=== PATIENT | male | born 1985 | race Caucasian/White ===

== ENCOUNTER 2018-04-17 09:57 | Inpatient (IN) | payer OTHER ==
[2018-04-17 10:22] VITALS: BMI 21.9
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
[2018-04-17] MEDS ORDERED: MENTHOL/PHENOL 1 EACH UD MM PRN (12:38)
[2018-04-17] MEDS ORDERED: ACETAMINOPHEN 325 MG TABLET (FP) PO PRN (12:38)
[2018-04-17] MEDS ORDERED: MAGNESIUM CITRATE 300 ML BOTTLE PO PRN (12:38)
[2018-04-17] MEDS ORDERED: IBUPROFEN 400 MG TABLET (FP) PO PRN (12:38)
[2018-04-17] MEDS ORDERED: MAG HYDROX/AL HYDROX/SIMETH 30 ML UNIT-DOSE CUP PO PRN (12:38)
[2018-04-17] MEDS ORDERED: MAGNESIUM HYDROX 2400MG/30ML ORAL SUSPENSION 30 ML CUP PO PRN (12:38)
[2018-04-17] MEDS ORDERED: P-EPHED 60MG/TRIPROLIDI 2.5MG TABLET PO PRN (12:38)
--- NOTE | 2018-04-17 15:44 | EKG ---
Test Reason : Blood Pressure : / mmHG Vent. Rate : 085 BPM Atrial Rate : 085 BPM P-R Int : 134 ms QRS Dur : 086 ms QT Int : 392 ms P-R-T Axes : 072 072 062 degrees QTc Int : 466 ms NORMAL SINUS RHYTHM NORMAL ECG NO PREVIOUS ECGS AVAILABLE Confirmed by KEN COY, PHIL ([id number]) on 04/17/2018 3:44:25 PM Referred By: Confirmed By:PHIL ROGERS MD
[2018-04-17] MEDS: THIAMINE HCL 100 MG TABLET (FP) PO SCH (22:44)
[2018-04-17] MEDS: diazePAM 5 MG TABLET PO SCH (22:45)
[2018-04-17] MEDS ORDERED: METHADONE HCL 10 MG TABLET (FOR DETOX USE ONLY) PO ONE (23:00)
[2018-04-18] MEDS: diazePAM 5 MG TABLET PO SCH ×3 (05:15→22:12)
[2018-04-18] MEDS ORDERED: METHADONE HCL 10 MG TABLET (FOR DETOX USE ONLY) PO SCH (10:00)
[2018-04-18] MEDS: NICOTINE 7 MG/24 HOURS TOPICAL PATCH TD SCH (10:08)
[2018-04-18] MEDS: diazePAM 5 MG TABLET PO PRN (10:08)
[2018-04-18] MEDS: PRENATAL VITAMINS W/ FOLIC ACID TABLET (FP) PO SCH (10:08)
[2018-04-18 11:20] LABS: HEMATOCRIT 34.3 % (35.4-49); HEMOGLOBIN 11.3 GM/dL (11.7-16.9); MCH 26.8 pg (25.7-33.7); MCHC 32.9 g/dl (32.0-35.9); MEAN CELL VOLUME 81.5 fl (80-96); PLATELET COUNT 187 K/MM3 (134-434); RBC 4.21 M/mm3 (4.00-5.60); RDW 13.8 % (11.9-15.9); WHITE BLOOD COUNT 6.7 K/mm3 (4.0-10.0)
[2018-04-18 12:14] LABS: ALBUMIN 3.4 g/dl (3.4-5.0); ALK PHOS 82 U/L (45-117); ANION GAP 6 MMOL/L (8-16); BILIRUBIN,TOTAL 0.4 mg/dL (0.2-1); BLOOD UREA NITROGEN 14 mg/dL (7-18); CALCIUM 8.3 mg/dL (8.5-10.1); CHLORIDE 96 mmol/L (98-107); CO2 27 mmol/L (21-32); CREATININE 0.9 mg/dL (0.55-1.3); GLUCOSE,RANDOM 108 mg/dL (74-106); SGOT/AST 94 U/L (15-37); SGPT/ALT 102 U/L (13-61); SODIUM 129 mmol/L (136-145); TOT PROT 8.2 g/dl (6.4-8.2)
--- NOTE | 2018-04-18 12:31 | PN ---
[facility] CIWA - CIWA Score Nausea/Vomitin-No Nausea/No Vomiting Muscle Tremors: 2 Anxiety: 3 Agitation: 3 Paroxysmal Sweats: 2 Orientation: 0-Oriented Tacttile Disturbances: 0-None Auditory Disturbances: 0-None Visual Disturbances: 1-Very Mild Sensitivity Headache: 0-None Present CIWA-Ar Total Score: 11 S COWS - Scale Resting Pulse: 1= [place] 81-100 Sweatin= Chills/Flushing Restless Observation: 1= Difficult to Sit Still Pupil Size: 0= Normal to Room Light Bone or Joint Aches: 1= Mild Discomfort Runny Nose/ Eye Tearin= Runny Nose/Eyes GI Upset > 30mins: 0= None Tremor Observation of Outstretched Hands: 1= Tremor [place], Not Seen Yawning Observation: 2= >3x During Session Anxiety or Irritability: 2=Irritable/Anxious Goose Flesh Skin: 0=Smooth Skin COWS Score: 11 [facility] Progress Note (SOAP) Subjective: fatigue, irritable, interrupted sleep Objective: 04/18/18 12:28 Vital Signs Temperature 98.4 F 04/18/18 08:58 Pulse Rate 90 04/18/18 08:58 Respiratory Rate 18 04/18/18 08:58 Blood Pressure 120/70 04/18/18 08:58 O2 Sat by Pulse Oximetry (%) Laboratory Last Values WBC 6.7 K/mm3 (4.0-10.0) 04/18/18 06:00 RBC 4.21 M/mm3 (4.00-5.60) 04/18/18 06:00 Hgb 11.3 GM/dL (11.7-16.9) L 04/18/18 06:00 Hct 34.3 % (35.4-49) L 04/18/18 06:00 MCV 81.5 fl (80-96) 04/18/18 06:00 MCH 26.8 pg (25.7-33.7) 04/18/18 06:00 MCHC 32.9 g/dl (32.0-35.9) 04/18/18 06:00 RDW 13.8 % (11.9-15.9) 04/18/18 06:00 Plt Count 187 K/MM3 (134-434) 04/18/18 06:00 MPV 9.0 fl (7.5-11.1) 04/18/18 06:00 Sodium 129 mmol/L (136-145) L 04/18/18 06:00 Potassium 4.0 mmol/L (3.5-5.1) 04/18/18 06:00 Chloride 96 mmol/L (98-107) L 04/18/18 06:00 Carbon Dioxide 27 mmol/L (21-32) 04/18/18 06:00 Anion Gap 6 MMOL/L (8-16) L 04/18/18 06:00 BUN 14 mg/dL (7-18) 04/18/18 06:00 Creatinine 0.9 mg/dL (0.55-1.3) 04/18/18 06:00 Creat Clearance w eGFR > 60 (>60) 04/18/18 06:00 Random Glucose 108 mg/dL (74-106) H 04/18/18 06:00 Calcium 8.3 mg/dL (8.5-10.1) L 04/18/18 06:00 Total Bilirubin 0.4 mg/dL (0.2-1) 04/18/18 06:00 AST 94 U/L (15-37) H 04/18/18 06:00 ALT 102 U/L (13-61) H 04/18/18 06:00 Alkaline Phosphatase 82 U/L (45-117) 04/18/18 06:00 Total Protein 8.2 g/dl (6.4-8.2) 04/18/18 06:00 Albumin 3.4 g/dl (3.4-5.0) 04/18/18 06:00 RPR Titer Nonreactive (NONREACTIVE) 04/18/18 06:00 labs reviewed repeat CMP, d/c acetaminophen Aox3, no distress, irrigable no adventitious breath sounds full ROM ambulating in the unit independently Assessment: 04/18/18 12:29 withdrawal sx elevated liver enzymes 04/18/18 12:30 Plan: increase PO fluids repeat CMP in AM continue detox continue to monitor
[2018-04-18] MEDS: THIAMINE HCL 100 MG TABLET (FP) PO SCH (22:12)
[2018-04-18] MEDS: MELATONIN 5 MG TABLETS PO PRN (22:13)
[2018-04-19] MEDS: diazePAM 5 MG TABLET PO PRN ×2 (04:02→17:51)
[2018-04-19] MEDS ORDERED: METHADONE HCL 5 MG TABLET (FOR DETOX USE ONLY) PO SCH (10:00)
[2018-04-19] MEDS: PRENATAL VITAMINS W/ FOLIC ACID TABLET (FP) PO SCH (10:06)
[2018-04-19] MEDS: diazePAM 5 MG TABLET PO SCH ×2 (10:06→22:25)
[2018-04-19] MEDS: NICOTINE 7 MG/24 HOURS TOPICAL PATCH TD SCH (10:06)
[2018-04-19 12:18] LABS: ALBUMIN 3.2 g/dl (3.4-5.0); ALK PHOS 86 U/L (45-117); ANION GAP 11 MMOL/L (8-16); BILIRUBIN,TOTAL 0.3 mg/dL (0.2-1); BLOOD UREA NITROGEN 6 mg/dL (7-18); CALCIUM 9.1 mg/dL (8.5-10.1); CHLORIDE 100 mmol/L (98-107); CO2 24 mmol/L (21-32); CREATININE 0.7 mg/dL (0.55-1.3); GLUCOSE,RANDOM 111 mg/dL (74-106); POTASSIUM 4.1 mmol/L (3.5-5.1); SGOT/AST 53 U/L (15-37); SGPT/ALT 84 U/L (13-61); SODIUM 134 mmol/L (136-145); TOT PROT 8.5 g/dl (6.4-8.2)
--- NOTE | 2018-04-19 14:38 | PN ---
[facility] CIWA - CIWA Score Nausea/Vomitin-No Nausea/No Vomiting Muscle Tremors: 2 Anxiety: 3 Agitation: 3 Paroxysmal Sweats: 1-Minimal Palms Moist Orientation: 0-Oriented Tacttile Disturbances: 0-None Auditory Disturbances: 0-None Visual Disturbances: 0-None Headache: 1-Very Mild CIWA-Ar Total Score: 10 [facility] COWS - Scale Resting Pulse: 0= [place] 80 or Below Sweatin= Chills/Flushing Restless Observation: 1= Difficult to Sit Still Pupil Size: 0= Normal to Room Light Bone or Joint Aches: 1= Mild Discomfort Runny Nose/ Eye Tearin= Nasal Congestion GI Upset > 30mins: 1= Stomach Cramp Tremor Observation of Outstretched Hands: 2= Slight Tremor Visible Yawning Observation: 1= 1-2x During Session Anxiety or Irritability: 2=Irritable/Anxious Goose Flesh Skin: 0=Smooth Skin COWS Score: 10 S Progress Note (SOAP) Subjective: tremor sweat restlessness body ache joints pain Objective: 04/19/18 14:38 Vital Signs Temperature 98.2 F 04/19/18 13:58 Pulse Rate 106 H 04/19/18 13:58 Respiratory Rate 16 04/19/18 13:58 Blood Pressure 135/79 04/19/18 13:58 O2 Sat by Pulse Oximetry (%) Laboratory Last Values WBC 6.7 K/mm3 (4.0-10.0) 04/18/18 06:00 RBC 4.21 M/mm3 (4.00-5.60) 04/18/18 06:00 Hgb 11.3 GM/dL (11.7-16.9) L 04/18/18 06:00 Hct 34.3 % (35.4-49) L 04/18/18 06:00 MCV 81.5 fl (80-96) 04/18/18 06:00 MCH 26.8 pg (25.7-33.7) 04/18/18 06:00 MCHC 32.9 g/dl (32.0-35.9) 04/18/18 06:00 RDW 13.8 % (11.9-15.9) 04/18/18 06:00 Plt Count 187 K/MM3 (134-434) 04/18/18 06:00 MPV 9.0 fl (7.5-11.1) 04/18/18 06:00 Sodium 134 mmol/L (136-145) L 04/19/18 07:49 Potassium 4.1 mmol/L (3.5-5.1) 04/19/18 07:49 Chloride 100 mmol/L (98-107) 04/19/18 07:49 Carbon Dioxide 24 mmol/L (21-32) 04/19/18 07:49 Anion Gap 11 MMOL/L (8-16) 04/19/18 07:49 BUN 6 mg/dL (7-18) L 04/19/18 07:49 Creatinine 0.7 mg/dL (0.55-1.3) 04/19/18 07:49 Creat Clearance w eGFR > 60 (>60) 04/19/18 07:49 Random Glucose 111 mg/dL (74-106) H 04/19/18 07:49 Calcium 9.1 mg/dL (8.5-10.1) 04/19/18 07:49 Total Bilirubin 0.3 mg/dL (0.2-1) 04/19/18 07:49 AST 53 U/L (15-37) H 04/19/18 07:49 ALT 84 U/L (13-61) H 04/19/18 07:49 Alkaline Phosphatase 86 U/L (45-117) 04/19/18 07:49 Total Protein 8.5 g/dl (6.4-8.2) H 04/19/18 07:49 Albumin 3.2 g/dl (3.4-5.0) L 04/19/18 07:49 RPR Titer Nonreactive (NONREACTIVE) 04/18/18 06:00 lab noted Assessment: 04/19/18 14:38 withdrawal sx Plan: continue detox
[2018-04-19] MEDS: THIAMINE HCL 100 MG TABLET (FP) PO SCH (22:25)
[2018-04-19] MEDS: MELATONIN 5 MG TABLETS PO PRN (22:25)
[2018-04-20] MEDS: diazePAM 5 MG TABLET PO PRN (04:52)
[2018-04-20 09:15] VITALS: BP 106/64; PULSE 95; TEMP 98.1
[2018-04-20] MEDS ORDERED: METHADONE HCL 10 MG TABLET (FOR DETOX USE ONLY) PO SCH (10:00)
[2018-04-20] MEDS: diazePAM 5 MG TABLET PO SCH (10:09)
[2018-04-20] MEDS: NICOTINE 7 MG/24 HOURS TOPICAL PATCH TD SCH (10:10)
[2018-04-20] MEDS: PRENATAL VITAMINS W/ FOLIC ACID TABLET (FP) PO SCH (10:10)
--- NOTE | 2018-04-20 13:16 | DS ---
[facility] Detox Discharge Summary Admission Date: 04/17/18 Discharge Date: 04/20/18 - History Present History: Alcohol Dependence, Opioid Dependence Additional Comments: 32 years old male admitted on 04/17/18 for alcohol and opiate withdrawal sx patient wants to leave the detox today that he does not want to go to rehab after the detox patient said he wants to be at home - Physical Exam Results Vital Signs: Vital Signs Temperature 98.1 F 04/20/18 09:14 Pulse Rate 95 H 04/20/18 09:14 Respiratory Rate 18 04/20/18 09:14 Blood Pressure 106/64 04/20/18 09:14 O2 Sat by Pulse Oximetry (%) Pertinent Admission Physical Exam Findings: alcohol and opiate withdrawal sx Vital Signs Temperature 98.1 F 04/20/18 09:14 Pulse Rate 95 H 04/20/18 09:14 Respiratory Rate 18 04/20/18 09:14 Blood Pressure 106/64 04/20/18 09:14 O2 Sat by Pulse Oximetry (%) Laboratory Last Values WBC 6.7 K/mm3 (4.0-10.0) 04/18/18 06:00 RBC 4.21 M/mm3 (4.00-5.60) 04/18/18 06:00 Hgb 11.3 GM/dL (11.7-16.9) L 04/18/18 06:00 Hct 34.3 % (35.4-49) L 04/18/18 06:00 MCV 81.5 fl (80-96) 04/18/18 06:00 MCH 26.8 pg (25.7-33.7) 04/18/18 06:00 MCHC 32.9 g/dl (32.0-35.9) 04/18/18 06:00 RDW 13.8 % (11.9-15.9) 04/18/18 06:00 Plt Count 187 K/MM3 (134-434) 04/18/18 06:00 MPV 9.0 fl (7.5-11.1) 04/18/18 06:00 Sodium 134 mmol/L (136-145) L 04/19/18 07:49 Potassium 4.1 mmol/L (3.5-5.1) 04/19/18 07:49 Chloride 100 mmol/L (98-107) 04/19/18 07:49 Carbon Dioxide 24 mmol/L (21-32) 04/19/18 07:49 Anion Gap 11 MMOL/L (8-16) 04/19/18 07:49 BUN 6 mg/dL (7-18) L 04/19/18 07:49 Creatinine 0.7 mg/dL (0.55-1.3) 04/19/18 07:49 Creat Clearance w eGFR > 60 (>60) 04/19/18 07:49 Random Glucose 111 mg/dL (74-106) H 04/19/18 07:49 Calcium 9.1 mg/dL (8.5-10.1) 04/19/18 07:49 Total Bilirubin 0.3 mg/dL (0.2-1) 04/19/18 07:49 AST 53 U/L (15-37) H 04/19/18 07:49 ALT 84 U/L (13-61) H 04/19/18 07:49 Alkaline Phosphatase 86 U/L (45-117) 04/19/18 07:49 Total Protein 8.5 g/dl (6.4-8.2) H 04/19/18 07:49 Albumin 3.2 g/dl (3.4-5.0) L 04/19/18 07:49 RPR Titer Nonreactive (NONREACTIVE) 04/18/18 06:00 lab noted - Treatment Hospital Course: Detox Protocol Followed, Responded well Patient has Accepted a Rehab Referral to: [facility] - Medication Discharge Medications: Ambulatory Orders NK [No Known Home Medication] 04/17/18 - Diagnosis (1) Alcohol withdrawal Status: Acute Qualifiers: Complication of substance-induced condition: uncomplicated Qualified Code(s ): F10.230 - Alcohol dependence with withdrawal, uncomplicated (2) Opioid dependence with withdrawal Status: Acute - AMA Did Patient Leave Against Medical Advice: Yes
[2018-04-21] MEDS ORDERED: METHADONE HCL 5 MG TABLET (FOR DETOX USE ONLY) PO SCH (06:00)
[2018-04-21] MEDS ORDERED: diazePAM 5 MG TABLET PO SCH (10:00)
== END 2018-04-20 11:14 | disposition home or self-care (01) | DRG 773 ==
LOC: YASAS 09:57 → Y6N 12:04
PROC: HZ2ZZZZ Detoxification Services for Substance Abuse Treatment (ICD-10-PCS; principal; 2018-04-17)
DX: F11.23 Opioid dependence with withdrawal (principal); F10.230 Alcohol dependence with withdrawal, uncomplicated; F14.20 Cocaine dependence, uncomplicated; F12.20 Cannabis dependence, uncomplicated; R94.5 Abnormal results of liver function studies
CPT/HCPCS: 36415; 80053; 85027; 86593; 93005; 93010

== ENCOUNTER 2018-07-23 17:55 | Inpatient (IN) | payer OTHER ==
[2018-07-23 18:49] VITALS: BMI 27.4
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
[2018-07-23] MEDS ORDERED: MENTHOL/PHENOL 1 EACH UD MM PRN (19:29)
[2018-07-23] MEDS ORDERED: ACETAMINOPHEN 325 MG TABLET (FP) PO PRN (19:29)
[2018-07-23] MEDS ORDERED: guaiFENesin/D-METHORPHAN HB 10 ML UNIT-DOSE CUPS PO PRN (19:29)
[2018-07-23] MEDS ORDERED: NICOTINE POLACRILEX 2 MG GUM BUC PRN (19:29)
[2018-07-23] MEDS ORDERED: LOPERAMIDE HCL 2 MG CAPSULE PO PRN (19:29)
[2018-07-23] MEDS ORDERED: IBUPROFEN 400 MG TABLET (FP) PO PRN (19:29)
[2018-07-23] MEDS ORDERED: MAGNESIUM CITRATE 300 ML BOTTLE PO PRN (19:29)
[2018-07-23] MEDS ORDERED: MAGNESIUM HYDROX 2400MG/30ML ORAL SUSPENSION 30 ML CUP PO PRN (19:29)
[2018-07-23] MEDS ORDERED: MAG HYDROX/AL HYDROX/SIMETH 30 ML UNIT-DOSE CUP PO PRN (19:29)
[2018-07-23] MEDS ORDERED: P-EPHED 60MG/TRIPROLIDI 2.5MG TABLET PO PRN (19:29)
[2018-07-23] MEDS: THIAMINE HCL 100 MG TABLET (FP) PO SCH (22:28)
[2018-07-23] MEDS: hydrOXYzine PAMOATE 50 MG CAPSULE (FP) PO PRN (22:29)
[2018-07-23] MEDS: MELATONIN 5 MG TABLETS PO PRN (22:29)
[2018-07-24] MEDS: NICOTINE 14 MG/24 HOURS TOPICAL PATCH TD SCH (10:03)
[2018-07-24] MEDS: PRENATAL VITAMINS W/ FOLIC ACID TABLET (FP) PO SCH (10:03)
[2018-07-24 10:20] LABS: URINE APPEARANCE TURBID; URINE BILIRUBIN NEGATIVE (<2.0 mg/dL); URINE GLUCOSE (UA) NEGATIVE (NEGATIVE); URINE KETONE NEGATIVE (NEGATIVE); URINE LEUK ESTERASE NEGATIVE (NEGATIVE); URINE NITRITE NEGATIVE (NEGATIVE); URINE PROTEIN 1+ (NEGATIVE); URINE UROBILINOGEN 4.0 E.U/dl mg/dL (0.2-1.0)
[2018-07-24 10:32] LABS: URINE COLOR DK YELLOW
[2018-07-24 10:41] LABS: URINE BACTERIA MODERATE /hpf (NONE SEEN); URINE MUCUS MANY
[2018-07-24 11:00] LABS: HEMATOCRIT 35.2 % (35.4-49); HEMOGLOBIN 12.1 GM/dL (11.7-16.9); MCH 28.7 pg (25.7-33.7); MCHC 34.4 g/dl (32.0-35.9); MEAN CELL VOLUME 83.4 fl (80-96); PLATELET COUNT 246 K/MM3 (134-434); RBC 4.22 M/mm3 (4.00-5.60); RDW 16.2 % (11.9-15.9); WHITE BLOOD COUNT 4.3 K/mm3 (4.0-10.0)
[2018-07-24 11:04] LABS: ALBUMIN 2.8 g/dl (3.4-5.0); ALK PHOS 64 U/L (45-117); ANION GAP 6 MMOL/L (8-16); BILIRUBIN,TOTAL 0.3 mg/dL (0.2-1); BLOOD UREA NITROGEN 12 mg/dL (7-18); CALCIUM 8.2 mg/dL (8.5-10.1); CHLORIDE 108 mmol/L (98-107); CO2 27 mmol/L (21-32); CREATININE 0.9 mg/dL (0.55-1.3); GLUCOSE,RANDOM 99 mg/dL (74-106); POTASSIUM 3.9 mmol/L (3.5-5.1); SGOT/AST 60 U/L (15-37); SGPT/ALT 124 U/L (13-61); SODIUM 141 mmol/L (136-145); TOT PROT 6.9 g/dl (6.4-8.2)
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
--- NOTE | 2018-07-24 14:12 | PN ---
S Progress Note Note: Pt would like to start on Suboxone. d/w counselor pt will be going to [facility]. Pt states has been on Suboxone in the past- last time from [facility] on 09/2017. No recent controlled substances in [facility]. long h/o opioid use. Last use: 2 days ago oxycodone bought in streets- Urine tox at admission neg
[2018-07-24] MEDS: BUPRENORPHINE/NALOXONE 8 MG/2 MG FILM PACKET SL SCH (15:31)
[2018-07-24] MEDS: THIAMINE HCL 100 MG TABLET (FP) PO SCH (21:16)
[2018-07-24] MEDS: MELATONIN 5 MG TABLETS PO PRN (21:16)
[2018-07-24] MEDS: hydrOXYzine PAMOATE 50 MG CAPSULE (FP) PO PRN (21:16)
[2018-07-24] MEDS: SUVOREXANT 10 MG TABLET PO PRN (21:16)
[2018-07-25] MEDS: PRENATAL VITAMINS W/ FOLIC ACID TABLET (FP) PO SCH (10:10)
[2018-07-25] MEDS: BUPRENORPHINE/NALOXONE 8 MG/2 MG FILM PACKET SL SCH (10:10)
[2018-07-25] MEDS: NICOTINE 14 MG/24 HOURS TOPICAL PATCH TD SCH (10:12)
[2018-07-25] MEDS: MELATONIN 5 MG TABLETS PO PRN (21:44)
[2018-07-25] MEDS: THIAMINE HCL 100 MG TABLET (FP) PO SCH (21:44)
[2018-07-25] MEDS: SUVOREXANT 10 MG TABLET PO PRN (21:44)
[2018-07-25] MEDS: hydrOXYzine PAMOATE 50 MG CAPSULE (FP) PO PRN (21:44)
[2018-07-26] MEDS: BUPRENORPHINE/NALOXONE 8 MG/2 MG FILM PACKET SL SCH (09:48)
[2018-07-26] MEDS: PRENATAL VITAMINS W/ FOLIC ACID TABLET (FP) PO SCH (09:48)
[2018-07-26] MEDS: NICOTINE 14 MG/24 HOURS TOPICAL PATCH TD SCH (09:49)
[2018-07-26] MEDS: hydrOXYzine PAMOATE 50 MG CAPSULE (FP) PO PRN (21:08)
[2018-07-26] MEDS: SUVOREXANT 10 MG TABLET PO PRN (21:08)
[2018-07-26] MEDS: THIAMINE HCL 100 MG TABLET (FP) PO SCH (21:08)
[2018-07-26] MEDS: MELATONIN 5 MG TABLETS PO PRN (21:08)
[2018-07-27] MEDS: NICOTINE 14 MG/24 HOURS TOPICAL PATCH TD SCH (10:02)
[2018-07-27] MEDS: PRENATAL VITAMINS W/ FOLIC ACID TABLET (FP) PO SCH (10:02)
[2018-07-27] MEDS: BUPRENORPHINE/NALOXONE 8 MG/2 MG FILM PACKET SL SCH (10:02)
[2018-07-27] MEDS: THIAMINE HCL 100 MG TABLET (FP) PO SCH (21:45)
[2018-07-27] MEDS: hydrOXYzine PAMOATE 50 MG CAPSULE (FP) PO PRN (21:45)
[2018-07-27] MEDS: MELATONIN 5 MG TABLETS PO PRN (21:46)
[2018-07-27] MEDS: SUVOREXANT 10 MG TABLET PO PRN (21:46)
[2018-07-28] MEDS: PRENATAL VITAMINS W/ FOLIC ACID TABLET (FP) PO SCH (10:16)
[2018-07-28] MEDS: NICOTINE 14 MG/24 HOURS TOPICAL PATCH TD SCH (10:16)
[2018-07-28] MEDS: BUPRENORPHINE/NALOXONE 8 MG/2 MG FILM PACKET SL SCH (10:16)
[2018-07-28] MEDS: hydrOXYzine PAMOATE 50 MG CAPSULE (FP) PO PRN (21:57)
[2018-07-28] MEDS: THIAMINE HCL 100 MG TABLET (FP) PO SCH (21:57)
[2018-07-28] MEDS: SUVOREXANT 10 MG TABLET PO PRN (21:57)
[2018-07-28] MEDS: MELATONIN 5 MG TABLETS PO PRN (21:57)
[2018-07-29] MEDS: NICOTINE 14 MG/24 HOURS TOPICAL PATCH TD SCH (10:36)
[2018-07-29] MEDS: BUPRENORPHINE/NALOXONE 8 MG/2 MG FILM PACKET SL SCH (10:36)
[2018-07-29] MEDS: PRENATAL VITAMINS W/ FOLIC ACID TABLET (FP) PO SCH (10:36)
[2018-07-29] MEDS: THIAMINE HCL 100 MG TABLET (FP) PO SCH (21:25)
[2018-07-29] MEDS: SUVOREXANT 10 MG TABLET PO PRN (21:25)
[2018-07-29] MEDS: hydrOXYzine PAMOATE 50 MG CAPSULE (FP) PO PRN (21:25)
[2018-07-29] MEDS: MELATONIN 5 MG TABLETS PO PRN (21:25)
[2018-07-30] MEDS: PRENATAL VITAMINS W/ FOLIC ACID TABLET (FP) PO SCH (10:16)
[2018-07-30] MEDS: BUPRENORPHINE/NALOXONE 8 MG/2 MG FILM PACKET SL SCH (10:16)
[2018-07-30] MEDS: NICOTINE 14 MG/24 HOURS TOPICAL PATCH TD SCH (10:17)
[2018-07-30] MEDS: MELATONIN 5 MG TABLETS PO PRN (21:54)
[2018-07-30] MEDS: THIAMINE HCL 100 MG TABLET (FP) PO SCH (21:54)
[2018-07-30] MEDS: SUVOREXANT 10 MG TABLET PO PRN (21:54)
[2018-07-30] MEDS: hydrOXYzine PAMOATE 50 MG CAPSULE (FP) PO PRN (21:54)
[2018-07-31] MEDS: NICOTINE 14 MG/24 HOURS TOPICAL PATCH TD SCH (09:55)
[2018-07-31] MEDS: PRENATAL VITAMINS W/ FOLIC ACID TABLET (FP) PO SCH (09:56)
[2018-07-31] MEDS: BUPRENORPHINE/NALOXONE 8 MG/2 MG FILM PACKET SL SCH (09:58)
[2018-07-31] MEDS: SUVOREXANT 10 MG TABLET PO PRN (21:56)
[2018-07-31] MEDS: THIAMINE HCL 100 MG TABLET (FP) PO SCH (21:56)
[2018-07-31] MEDS: hydrOXYzine PAMOATE 50 MG CAPSULE (FP) PO PRN (21:57)
[2018-07-31] MEDS: MELATONIN 5 MG TABLETS PO PRN (21:57)
[2018-08-01] MEDS: PRENATAL VITAMINS W/ FOLIC ACID TABLET (FP) PO SCH (09:25)
[2018-08-01] MEDS: BUPRENORPHINE/NALOXONE 8 MG/2 MG FILM PACKET SL SCH (09:25)
[2018-08-01] MEDS: NICOTINE 14 MG/24 HOURS TOPICAL PATCH TD SCH (09:25)
[2018-08-01] MEDS: MELATONIN 5 MG TABLETS PO PRN (21:47)
[2018-08-01] MEDS: SUVOREXANT 10 MG TABLET PO PRN (21:47)
[2018-08-01] MEDS: THIAMINE HCL 100 MG TABLET (FP) PO SCH (21:47)
[2018-08-01] MEDS: hydrOXYzine PAMOATE 50 MG CAPSULE (FP) PO PRN (21:47)
[2018-08-02] MEDS: BUPRENORPHINE/NALOXONE 8 MG/2 MG FILM PACKET SL SCH (09:51)
[2018-08-02] MEDS: NICOTINE 14 MG/24 HOURS TOPICAL PATCH TD SCH (09:51)
[2018-08-02] MEDS: PRENATAL VITAMINS W/ FOLIC ACID TABLET (FP) PO SCH (09:51)
[2018-08-02] MEDS ORDERED: SUVOREXANT 10 MG TABLET PO PRN (22:00)
[2018-08-02] MEDS: THIAMINE HCL 100 MG TABLET (FP) PO SCH (22:04)
[2018-08-03] MEDS: NICOTINE 14 MG/24 HOURS TOPICAL PATCH TD SCH (10:48)
[2018-08-03] MEDS: BUPRENORPHINE/NALOXONE 8 MG/2 MG FILM PACKET SL SCH (10:48)
[2018-08-03] MEDS: PRENATAL VITAMINS W/ FOLIC ACID TABLET (FP) PO SCH (10:48)
--- NOTE | 2018-08-03 10:54 | PN ---
S Progress Note Note: PATIENT C/O FUNGAL RASH TO FEET. DENIES PAIN, SORES AND SWELLING TO FEET. PATIENT AMB AD AJAY, EXT FULL ROM. WILL ORDER TOLFINATE CREAM TO FEET BID AND MONITOR CLINICALLY.
[2018-08-03] MEDS: TOLNAFTATE 1% CREAM 15 GM TUBE TP SCH ×2 (17:07→21:52)
[2018-08-03] MEDS: MELATONIN 5 MG TABLETS PO PRN (21:52)
[2018-08-03] MEDS: hydrOXYzine PAMOATE 50 MG CAPSULE (FP) PO PRN (21:52)
[2018-08-03] MEDS: THIAMINE HCL 100 MG TABLET (FP) PO SCH (21:53)
[2018-08-04] MEDS: PRENATAL VITAMINS W/ FOLIC ACID TABLET (FP) PO SCH (10:11)
[2018-08-04] MEDS: BUPRENORPHINE/NALOXONE 8 MG/2 MG FILM PACKET SL SCH (10:11)
[2018-08-04] MEDS: TOLNAFTATE 1% CREAM 15 GM TUBE TP SCH ×2 (10:12→21:38)
[2018-08-04] MEDS: NICOTINE 14 MG/24 HOURS TOPICAL PATCH TD SCH (10:13)
[2018-08-04] MEDS ORDERED: IBUPROFEN 400 MG TABLET (FP) PO PRN (11:38)
--- NOTE | 2018-08-04 11:44 | PN ---
[facility] Progress Note Note: PATIENT SEEN FOR C/O LEFT EARACHE AND TOOTHACHE. . PATIENT DENIES FEVER, HEADACHE AND DIZZINESS. Vital Signs Temperature 97.6 F 08/04/18 07:05 Pulse Rate 70 08/04/18 07:05 Respiratory Rate 18 08/04/18 07:05 Blood Pressure 118/74 08/04/18 07:05 O2 Sat by Pulse Oximetry (%) PE: ALERT AND ORIENTED X 3 SKIN WARM AND DRY EARS: RIGHT TM INTACT, NEG FOR CERUMEN, DISCHARGE AND REDNESS. LEFT EAR WITH MILD CERUMEN IN EAR CANAL, NEG FOR IMPACTION, REDNESS, D/C AND SWELLING. MOUTH: + TOOTH DECAY. LEFT UPPER MOLAR WITH CRACK TOOTH AND EXPOSED GUMS/ ? NERVE A/P: TOOTHACHE TOOTH DECAY PATIENT ENCOURAGED TO FOLLOW UP WITH DENTIST WITHIN ONE WEEK OF DISCHARGE FOR TREATMENT WILL START ORAGEL IBU INCREASED TO 800MG EVERY 8 HRS PRN FOR PAIN CONTINUE TO MONITOR
[2018-08-04] MEDS: BENZOCAINE 20 % GEL TUBE MM PRN (14:04)
[2018-08-04] MEDS: THIAMINE HCL 100 MG TABLET (FP) PO SCH (21:37)
[2018-08-04] MEDS: MELATONIN 5 MG TABLETS PO PRN (21:38)
[2018-08-04] MEDS: hydrOXYzine PAMOATE 50 MG CAPSULE (FP) PO PRN (21:38)
[2018-08-05] MEDS: BENZOCAINE 20 % GEL TUBE MM PRN (10:19)
[2018-08-05] MEDS: PRENATAL VITAMINS W/ FOLIC ACID TABLET (FP) PO SCH (10:19)
[2018-08-05] MEDS: BUPRENORPHINE/NALOXONE 8 MG/2 MG FILM PACKET SL SCH (10:21)
[2018-08-05] MEDS: NICOTINE 14 MG/24 HOURS TOPICAL PATCH TD SCH (10:21)
[2018-08-05] MEDS: TOLNAFTATE 1% CREAM 15 GM TUBE TP SCH (10:21)
[2018-08-05] MEDS: hydrOXYzine PAMOATE 50 MG CAPSULE (FP) PO PRN (21:45)
[2018-08-05] MEDS: MELATONIN 5 MG TABLETS PO PRN (21:45)
[2018-08-05] MEDS: THIAMINE HCL 100 MG TABLET (FP) PO SCH (21:46)
[2018-08-05] MEDS ORDERED: SUVOREXANT 10 MG TABLET PO PRN (22:00)
[2018-08-06] MEDS: TOLNAFTATE 1% CREAM 15 GM TUBE TP SCH ×2 (00:38→10:25)
[2018-08-06 07:12] VITALS: BP 104/75; PULSE 68; TEMP 98.1
[2018-08-06] MEDS ORDERED: PT OWN MED DRAWER 7, Y5N ONE (09:33)
--- NOTE | 2018-08-06 10:09 | PN ---
Psychiatric Progress Note Vital Signs: Vital Signs Period Temp Pulse Resp BP Sys/Michaels Pulse Ox Last 24 Hr 98.1 F 68 18-18 104/75 Date of Session: 08/06/18 Chief Complaint:: Discharge Note HPI: Patient addressing alcohol and cannabis dependence comorbid with nicotine dependence, posttraumatic stress disorder, substance-induced anxiety disorder and substance-induced sleep disorder Current Medications: Active Medications Generic Name Dose Route Start Last Admin Trade Name Freq PRN Reason Stop Dose Admin Acetaminophen 650 mg 07/23/18 19:29 Tylenol - PO Q4H PRN FEVER Al Hydroxide/Mg Hydroxide 30 ml 07/23/18 19:29 Mylanta Oral Suspension - PO Q6H PRN DYSPEPSIA Benzocaine 1 applic 08/04/18 11:37 08/05/18 10:19 Anbesol - MM 1 applic Q6H PRN Administration ORAL PAIN/MOUTH SORES Buprenorphine/Naloxone 1 each 07/31/18 10:00 08/05/18 10:21 Suboxone 8mg/2mg Sl Film - SL 08/07/18 09:59 1 each DAILY NICOLE Administration Eucalyptus/Menthol/Phenol/Sorbitol 1 each 07/23/18 19:29 Cepastat Lozenge - MM Q4H PRN SORE THROAT Guaifenesin 10 ml 07/23/18 19:29 Robitussin Dm - PO Q6H PRN COUGH Hydroxyzine Pamoate 50 mg 07/23/18 19:29 08/05/18 21:45 Vistaril - PO 50 mg Q4H PRN Administration AGITATION Ibuprofen 800 mg 08/04/18 11:38 Motrin - PO Q8H PRN PAIN LEVEL 7 - 10 Loperamide HCl 4 mg 07/23/18 19:29 Imodium - PO Q6H PRN DIARRHEA Magnesium Citrate 300 ml 07/23/18 19:29 Citroma - PO Q48H PRN CONSTIPATION Magnesium Hydroxide 30 ml 07/23/18 19:29 Milk Of Magnesia - PO DAILY PRN CONSTIPATION Melatonin 5 mg 07/23/18 22:00 08/05/18 21:45 Melatonin PO 5 mg HS PRN Administration INSOMNIA Nicotine 14 mg 07/24/18 10:00 08/05/18 10:21 Nicoderm Patch - TD Not Given DAILY NICOLE Nicotine Polacrilex 2 mg 07/23/18 19:29 Nicorette Gum - BUC Q2H PRN NICOTINE REPLACEMENT RX Multivit/Folic Acid/Iron 1 tab 07/24/18 10:00 08/05/18 10:19 Vitamins (Sjr) - PO 1 tab DAILY NICOLE Administration Pseudoephedrine/Triprolidine 1 combo 07/23/18 19:29 Actifed - PO TID PRN NASAL CONGESTION Suvorexant 10 mg 08/05/18 22:00 08/05/18 21:45 Belsomra PO 08/08/18 21:59 10 mg HS PRN Administration INSOMNIA Thiamine HCl 100 mg 07/23/18 22:00 08/05/18 21:46 Vitamin B1 - PO 100 mg HS NICOLE Administration Tolnaftate 1 applic 08/03/18 12:00 08/06/18 00:38 Tinactin 1% Cream - TP Not Given BID NICOLE Current Side Effect: No Lab tests ordered: Yes Lab tests reviewed: Yes Provider note:: Patient has completed this program today. He has met his treatment goals and will continue to address his issues in outpatient treatment at [facility] at [address] [place] [address]. 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 He is stable for discharge today Total face to face time:: 35 Mental Status Exam - Mental Status Exam Alert and Oriented to: Time, Place, Person Cognitive Function: Fair Patient Appearance: Well Groomed Mood: Hopeful, Euthymic Affect: Appropriate Patient Behavior: Cooperative Speech Pattern: Clear Voice Loudness: Normal Thought Process: Intact, Goal Oriented Thought Disorder: Not Present Hallucinations: Denies Suicidal Ideation: Denies Homicidal Ideation: Denies Insight/Judgement: Fair Sleep: Fair Appetite: Good Muscle strength/Tone: Normal Gait/Station: Normal Psychiatric Treatment Plan - Problem List (1) Alcohol dependence Current Visit: Yes (2) Cannabis dependence Current Visit: Yes (3) Nicotine dependence Current Visit: Yes (4) PTSD (post-traumatic stress disorder) Current Visit: Yes (5) Substance-induced anxiety disorder Current Visit: Yes (6) Substance-induced sleep disorder Current Visit: Yes Initial treatment plan: Patient is discharged today and referred to [facility] for outpatient treatment
[2018-08-06] MEDS: BUPRENORPHINE/NALOXONE 8 MG/2 MG FILM PACKET SL SCH (10:24)
[2018-08-06] MEDS: PRENATAL VITAMINS W/ FOLIC ACID TABLET (FP) PO SCH (10:24)
[2018-08-06] MEDS: NICOTINE 14 MG/24 HOURS TOPICAL PATCH TD SCH (10:26)
--- NOTE | 2018-08-06 13:01 | PN ---
[facility] Progress Note Note: PATIENT COMPLETED REHAB TODAY WITHOUT ADVERSE EVENT. PATIENT MEDICALLY STABLE AND DENIES SI/HI. PATIENT TO CONTINUE SUBOXONE TREATMENT AT [facility] AND APPOINTMENT SCHEDULED FOR 08/14/18 AT 1PM. PATIENT GIVEN ONE WEEK OF SUBOXONE 8MG /2MG STRIPS #7 NO REFILLS AND SENT TO [facility]. PATIENT ENCOURAGED TO CONTINUE WITH OUTPATIENT SERVICES TO PREVENT RELAPSE. NARCAN KIT ALSO SENT TO PHARMACY. Vital Signs Temperature 98.1 F 08/06/18 07:12 Pulse Rate 68 08/06/18 07:12 Respiratory Rate 18 08/06/18 07:12 Blood Pressure 104/75 08/06/18 07:12 O2 Sat by Pulse Oximetry (%)
== END 2018-08-06 12:30 | disposition home or self-care (01) | DRG 772 ==
LOC: YASAS 17:55 → Y3W 21:03
PROVIDERS: ADMIT Psychiatry & Neurology Psychiatry; ATTEND Psychiatry & Neurology Psychiatry
PROC: HZ42ZZZ Group Counseling for Substance Abuse Treatment, Cognitive-Behavioral (ICD-10-PCS; principal; 2018-07-23)
DX: F10.20 Alcohol dependence, uncomplicated (principal); F11.20 Opioid dependence, uncomplicated; F12.20 Cannabis dependence, uncomplicated; F17.210 Nicotine dependence, cigarettes, uncomplicated; F43.10 Post-traumatic stress disorder, unspecified; F19.280 Other psychoactive substance dependence with psychoactive substance-induced anxiety disorder; F19.282 Other psychoactive substance dependence with psychoactive substance-induced sleep disorder; K02.9 Dental caries, unspecified; B35.3 Tinea pedis; R00.0 Tachycardia, unspecified
CPT/HCPCS: 36415; 80053; 81003; 81015; 85027; 86593

== ENCOUNTER 2018-10-18 10:55 | Inpatient (IN) | payer OTHER ==
[2018-10-18 11:13] VITALS: BMI 21.2
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
[2018-10-18] MEDS ORDERED: MAG HYDROX/AL HYDROX/SIMETH 30 ML UNIT-DOSE CUP PO PRN (11:36)
[2018-10-18] MEDS ORDERED: MENTHOL/PHENOL 1 EACH UD MM PRN (11:36)
[2018-10-18] MEDS ORDERED: ACETAMINOPHEN 325 MG TABLET (FP) PO PRN ×2 (11:36)
[2018-10-18] MEDS ORDERED: hydrOXYzine PAMOATE 25 MG CAPSULE (FP) PO PRN (11:36)
[2018-10-18] MEDS ORDERED: METHOCARBAMOL 500 MG TABLET PO PRN (11:36)
[2018-10-18] MEDS ORDERED: MAGNESIUM HYDROX 2400MG/30ML ORAL SUSPENSION 30 ML CUP PO PRN (11:36)
[2018-10-18] MEDS ORDERED: BISMUTH SUBSALICYLATE 524 MG/30 ML UD PO PRN (11:36)
[2018-10-18] MEDS ORDERED: IBUPROFEN 400 MG TABLET (FP) PO PRN (11:36)
[2018-10-18] MEDS ORDERED: MAGNESIUM CITRATE 300 ML BOTTLE PO PRN (11:36)
[2018-10-18] MEDS ORDERED: MELATONIN 5 MG TABLETS PO PRN (11:36)
[2018-10-18] MEDS ORDERED: cloNIDine HCL 0.1 MG TABLET PO PRN (11:36)
[2018-10-18] MEDS ORDERED: diazePAM 5 MG TABLET PO PRN (11:39)
[2018-10-18] MEDS ORDERED: METHADONE HCL 10 MG TABLET (FOR DETOX USE ONLY) PO ONE ×2 (12:36→23:00)
[2018-10-18] MEDS: THIAMINE HCL 100 MG TABLET (FP) PO SCH (22:20)
[2018-10-19] MEDS ORDERED: METHADONE HCL 10 MG TABLET (FOR DETOX USE ONLY) PO ONE (10:00)
[2018-10-19 10:02] LABS: HEMATOCRIT 41.4 % (35.4-49); HEMOGLOBIN 13.1 GM/dL (11.7-16.9); MCH 26.1 pg (25.7-33.7); MCHC 31.6 g/dl (32.0-35.9); MEAN CELL VOLUME 82.7 fl (80-96); PLATELET COUNT 202 K/MM3 (134-434); RBC 5.01 M/mm3 (4.00-5.60); RDW 15.1 % (11.9-15.9); WHITE BLOOD COUNT 5.2 K/mm3 (4.0-10.0)
[2018-10-19] MEDS: PRENATAL VITAMINS W/ FOLIC ACID TABLET (FP) PO SCH (10:16)
[2018-10-19 10:20] LABS: ALBUMIN 2.9 g/dl (3.4-5.0); ALK PHOS 72 U/L (45-117); ANION GAP 2 MMOL/L (8-16); BILIRUBIN,TOTAL 0.3 mg/dL (0.2-1); BLOOD UREA NITROGEN 12 mg/dL (7-18); CALCIUM 8.4 mg/dL (8.5-10.1); CHLORIDE 103 mmol/L (98-107); CO2 30 mmol/L (21-32); CREATININE 0.8 mg/dL (0.55-1.3); GLUCOSE,RANDOM 82 mg/dL (74-106); POTASSIUM 4.2 mmol/L (3.5-5.1); SGOT/AST 125 U/L (15-37); SGPT/ALT 115 U/L (13-61); SODIUM 135 mmol/L (136-145); TOT PROT 7.2 g/dl (6.4-8.2)
--- NOTE | 2018-10-19 10:20 | PN ---
[facility] COWS - Scale Resting Pulse: 0= [place] 80 or Below Sweatin=Flushed/Facial Moisture Restless Observation: 1= Difficult to Sit Still Pupil Size: 0= Normal to Room Light Bone or Joint Aches: 1= Mild Discomfort Runny Nose/ Eye Tearin= Runny Nose/Eyes GI Upset > 30mins: 0= None Tremor Observation of Outstretched Hands: 1= Tremor Seale, Not Seen Yawning Observation: 0= None Anxiety or Irritability: 1=Feels Anxious/Irritable Goose Flesh Skin: 3=Piloerection COWS Score: 11 [facility] Progress Note (SOAP) Subjective: anxiety sweats irritable agitation interrupted sleep tired Objective: 10/19/18 10:19 Vital Signs Temperature 97.9 F 10/19/18 08:52 Pulse Rate 58 L 10/19/18 08:52 Respiratory Rate 18 10/19/18 08:52 Blood Pressure 108/66 10/19/18 08:52 O2 Sat by Pulse Oximetry (%) Laboratory Tests 10/19/18 07:00 WBC 5.2 RBC 5.01 Hgb 13.1 Hct 41.4 D MCV 82.7 MCH 26.1 MCHC 31.6 L RDW 15.1 Plt Count 202 MPV 9.0 D rest of labs pending aaox3 ambulating no acute distress Assessment: 10/19/18 10:20 withdrawal sx Plan: continue detox increase fluids labs pending
[2018-10-19] MEDS: THIAMINE HCL 100 MG TABLET (FP) PO SCH (22:17)
[2018-10-20] MEDS ORDERED: METHADONE HCL 10 MG TABLET (FOR DETOX USE ONLY) PO ONE (10:00)
--- NOTE | 2018-10-20 10:16 | PN ---
[facility] COWS - Scale Resting Pulse: 0= [place] 80 or Below Sweatin=Flushed/Facial Moisture Restless Observation: 1= Difficult to Sit Still Pupil Size: 0= Normal to Room Light Bone or Joint Aches: 2= Severe Diffuse Aches Runny Nose/ Eye Tearin= Nasal Congestion GI Upset > 30mins: 0= None Tremor Observation of Outstretched Hands: 1= Tremor Conner, Not Seen Yawning Observation: 1= 1-2x During Session Anxiety or Irritability: 2=Irritable/Anxious Goose Flesh Skin: 0=Smooth Skin COWS Score: 10 [facility] Progress Note (SOAP) Subjective: irritable agitation sweats interrupted sleep Objective: 10/20/18 10:14 Vital Signs Temperature 97.9 F 10/20/18 09:38 Pulse Rate 66 10/20/18 09:38 Respiratory Rate 18 10/20/18 09:38 Blood Pressure 118/57 L 10/20/18 09:38 O2 Sat by Pulse Oximetry (%) Laboratory Tests 10/19/18 10/19/18 10/19/18 07:00 07:00 07:00 WBC 5.2 RBC 5.01 Hgb 13.1 Hct 41.4 D MCV 82.7 MCH 26.1 MCHC 31.6 L RDW 15.1 Plt Count 202 MPV 9.0 D Sodium 135 L Potassium 4.2 Chloride 103 Carbon Dioxide 30 Anion Gap 2 L BUN 12 Creatinine 0.8 Creat Clearance w eGFR 111.33 Random Glucose 82 Calcium 8.4 L Total Bilirubin 0.3 AST 125 H ALT 115 H Alkaline Phosphatase 72 Total Protein 7.2 Albumin 2.9 L RPR Titer Nonreactive ast/alt elevated; d/c tylenol repeat cbc aaox3 ambulating no acute distress Assessment: 10/20/18 10:15 withdrawal sx Plan: continue detox increase fluids pending lab results
[2018-10-20] MEDS: PRENATAL VITAMINS W/ FOLIC ACID TABLET (FP) PO SCH (10:18)
[2018-10-20] MEDS: THIAMINE HCL 100 MG TABLET (FP) PO SCH (21:15)
[2018-10-21 09:13] VITALS: BP 106/55; PULSE 71; TEMP 98.2
[2018-10-21] MEDS ORDERED: METHADONE HCL 10 MG TABLET (FOR DETOX USE ONLY) PO ONE (10:00)
--- NOTE | 2018-10-21 10:19 | PN ---
[facility] Progress Note (SOAP) Subjective: sweats interrupted sleep irritable Objective: 10/21/18 10:18 Vital Signs Temperature 98.2 F 10/21/18 09:13 Pulse Rate 71 10/21/18 09:13 Respiratory Rate 16 10/21/18 09:13 Blood Pressure 106/55 L 10/21/18 09:13 O2 Sat by Pulse Oximetry (%) Laboratory Tests 10/19/18 10/19/18 10/19/18 07:00 07:00 07:00 WBC 5.2 RBC 5.01 Hgb 13.1 Hct 41.4 D MCV 82.7 MCH 26.1 MCHC 31.6 L RDW 15.1 Plt Count 202 MPV 9.0 D Sodium 135 L Potassium 4.2 Chloride 103 Carbon Dioxide 30 Anion Gap 2 L BUN 12 Creatinine 0.8 Creat Clearance w eGFR 111.33 Random Glucose 82 Calcium 8.4 L Total Bilirubin 0.3 AST 125 H ALT 115 H Alkaline Phosphatase 72 Total Protein 7.2 Albumin 2.9 L RPR Titer Nonreactive repeat labs pending aaox3 ambulating no acute distress Assessment: 10/21/18 10:18 withdrawal sx Plan: continue detox increase fluids trazadone 50mg x one for HS d/c in am
[2018-10-21] MEDS: PRENATAL VITAMINS W/ FOLIC ACID TABLET (FP) PO SCH (10:25)
--- NOTE | 2018-10-21 10:59 | PN ---
S Progress Note Note: pt now states he is feeling much better after receiving his methadone dose and will like to be discharged. Pt appears fine no s/s of withdrawals. Pt appears more energetic. Pt will be d/c today.
--- NOTE | 2018-10-21 11:03 | DS ---
[facility] Detox Discharge Summary Admission Date: 10/18/18 Discharge Date: 10/21/18 - History Present History: Cocaine Dependence, Opioid Dependence - Physical Exam Results Vital Signs: Vital Signs Temperature 98.2 F 10/21/18 09:13 Pulse Rate 71 10/21/18 09:13 Respiratory Rate 16 10/21/18 09:13 Blood Pressure 106/55 L 10/21/18 09:13 O2 Sat by Pulse Oximetry (%) - Treatment Hospital Course: Detox Protocol Followed, Detoxed Safely, Responded well, Discharged Condition Good, Rehab Referral Accepted - Medication Discharge Medications: Ambulatory Orders NK [No Known Home Medication] 10/18/18 - Diagnosis (1) Cocaine dependence Current Visit: Yes Status: Chronic Qualifiers: Substance use status: uncomplicated Qualified Code(s): F14.20 - Cocaine dependence, uncomplicated (2) History of facial surgery Current Visit: No Status: Chronic (3) IVDU (intravenous drug user) Current Visit: Yes Status: Chronic (4) Weight loss Current Visit: Yes Status: Acute (5) Elevated liver enzymes Current Visit: No Status: Acute (6) Substance-induced anxiety disorder Current Visit: No Status: Acute (7) Substance-induced sleep disorder Current Visit: No Status: Acute (8) Cannabis dependence Current Visit: Yes Status: Chronic (9) Nicotine dependence Current Visit: Yes Status: Chronic Qualifiers: Nicotine product type: cigarettes Substance use status: uncomplicated Qualified Code(s): F17.210 - Nicotine dependence, cigarettes, uncomplicated (10) Opioid dependence with withdrawal Current Visit: Yes Status: Chronic (11) PTSD (post-traumatic stress disorder) Current Visit: No Status: Chronic - AMA Did Patient Leave Against Medical Advice: No (referred to outpatient rehab)
[2018-10-21 12:54] LABS: ALBUMIN 2.9 g/dl (3.4-5.0); ALK PHOS 79 U/L (45-117); ANION GAP 6 MMOL/L (8-16); BILIRUBIN,TOTAL 0.2 mg/dL (0.2-1); BLOOD UREA NITROGEN 13 mg/dL (7-18); CALCIUM 7.9 mg/dL (8.5-10.1); CHLORIDE 106 mmol/L (98-107); CO2 27 mmol/L (21-32); CREATININE 0.8 mg/dL (0.55-1.3); GLUCOSE,RANDOM 76 mg/dL (74-106); POTASSIUM 3.9 mmol/L (3.5-5.1); SGOT/AST 122 U/L (15-37); SGPT/ALT 120 U/L (13-61); SODIUM 139 mmol/L (136-145)
[2018-10-21] MEDS ORDERED: traZODone HCL 50 MG TABLET (FP) PO SCH (22:00)
[2018-10-22] MEDS ORDERED: METHADONE HCL 5 MG TABLET (FOR DETOX USE ONLY) PO ONE (06:00)
== END 2018-10-21 11:15 | disposition home or self-care (01) | DRG 773 ==
LOC: YASAS 10:55 → Y6N 12:00
PROVIDERS: ADMIT Surgery; ATTEND Surgery
PROC: HZ2ZZZZ Detoxification Services for Substance Abuse Treatment (ICD-10-PCS; principal; 2018-10-18)
DX: F11.23 Opioid dependence with withdrawal (principal); F14.20 Cocaine dependence, uncomplicated; F12.20 Cannabis dependence, uncomplicated; F17.210 Nicotine dependence, cigarettes, uncomplicated; F43.10 Post-traumatic stress disorder, unspecified; F19.280 Other psychoactive substance dependence with psychoactive substance-induced anxiety disorder; F19.282 Other psychoactive substance dependence with psychoactive substance-induced sleep disorder; R63.4 Abnormal weight loss
CPT/HCPCS: 36415; 80053; 85027; 86593

== ENCOUNTER 2019-01-23 12:03 | Inpatient (IN) | payer OTHER ==
[2019-01-23 12:27] VITALS: BMI 20.2
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
[2019-01-23] MEDS ORDERED: METHADONE HCL 10 MG TABLET (FOR DETOX USE ONLY) PO ONE (16:53)
[2019-01-23] MEDS ORDERED: cloNIDine HCL 0.1 MG TABLET PO PRN (16:53)
[2019-01-23] MEDS ORDERED: diazePAM 5 MG TABLET PO PRN (16:55)
[2019-01-23] MEDS ORDERED: MAG HYDROX/AL HYDROX/SIMETH 30 ML UNIT-DOSE CUP PO PRN (16:56)
[2019-01-23] MEDS ORDERED: BISMUTH SUBSALICYLATE 524 MG/30 ML UD PO PRN (16:56)
[2019-01-23] MEDS ORDERED: METHOCARBAMOL 500 MG TABLET PO PRN (16:56)
[2019-01-23] MEDS ORDERED: MAGNESIUM CITRATE 300 ML BOTTLE PO PRN (16:56)
[2019-01-23] MEDS ORDERED: hydrOXYzine PAMOATE 25 MG CAPSULE (FP) PO PRN (16:56)
[2019-01-23] MEDS ORDERED: MENTHOL/PHENOL 1 EACH UD MM PRN (16:56)
[2019-01-23] MEDS ORDERED: MAGNESIUM HYDROX 2400MG/30ML ORAL SUSPENSION 30 ML CUP PO PRN (16:56)
[2019-01-23] MEDS ORDERED: NICOTINE POLACRILEX 2 MG GUM BUC PRN (16:56)
[2019-01-23] MEDS ORDERED: ACETAMINOPHEN 325 MG TABLET (FP) PO PRN ×2 (16:56)
[2019-01-23] MEDS ORDERED: IBUPROFEN 400 MG TABLET (FP) PO PRN (16:56)
[2019-01-23] MEDS ORDERED: MELATONIN 5 MG TABLETS PO PRN (22:00)
[2019-01-23] MEDS: diazePAM 5 MG TABLET PO SCH (23:03)
[2019-01-23] MEDS: THIAMINE HCL 100 MG TABLET (FP) PO SCH (23:03)
[2019-01-24] MEDS: diazePAM 5 MG TABLET PO SCH ×3 (07:02→22:25)
[2019-01-24] MEDS ORDERED: METHADONE HCL 5 MG TABLET (FOR DETOX USE ONLY) PO ONE (10:00)
[2019-01-24] MEDS: PRENATAL VITAMINS W/ FOLIC ACID TABLET (FP) PO SCH (10:33)
[2019-01-24] MEDS: NICOTINE 21 MG/24 HOURS TOPICAL PATCH TD SCH (10:33)
--- NOTE | 2019-01-24 14:14 | PN ---
[facility] CIWA - CIWA Score Nausea/Vomitin-No Nausea/No Vomiting Muscle Tremors: None Anxiety: 3 Agitation: 1-Slight > Activity Paroxysmal Sweats: 3 Orientation: 2-Disoriented Date<2 days Tacttile Disturbances: 1-Very Mild Itch/Numbness Auditory Disturbances: 1-Very Mild Visual Disturbances: 2-Mild Sensitivity Headache: 0-None Present CIWA-Ar Total Score: 13 BHS COWS - Scale Resting Pulse: 1= [place] 81-100 Sweatin= Chills/Flushing Restless Observation: 1= Difficult to Sit Still Pupil Size: 0= Normal to Room Light Bone or Joint Aches: 2= Severe Diffuse Aches Runny Nose/ Eye Tearin= Runny Nose/Eyes GI Upset > 30mins: 0= None Tremor Observation of Outstretched Hands: 0= None Yawning Observation: 1= 1-2x During Session Anxiety or Irritability: 2=Irritable/Anxious Goose Flesh Skin: 3=Piloerection COWS Score: 13 S Progress Note (SOAP) Subjective: Runny Nose, Sweating, Body Aches, Anxious. Objective: PATIENT A & O X 2 (UNCERTAIN ABOUT CURRENT DAY / DATE). PATIENT OBSERVED AMBULATING ON UNIT UNASSISTED. IN NO ACUTE DISTRESS. 01/24/19 14:15 Vital Signs Temperature 97.9 F 01/24/19 13:11 Pulse Rate 64 01/24/19 13:11 Respiratory Rate 18 01/24/19 13:11 Blood Pressure 100/62 01/24/19 13:11 O2 Sat by Pulse Oximetry (%) PATIENT REFUSED TO HAVE ADMISSION LABS DRAWN. 01/24/19 14:16 Assessment: 01/24/19 14:16 WITHDRAWAL SYMPTOMS. Plan: CONTINUE DETOX.
[2019-01-24] MEDS: THIAMINE HCL 100 MG TABLET (FP) PO SCH (22:25)
[2019-01-25] MEDS: diazePAM 5 MG TABLET PO SCH ×2 (06:33→17:34)
[2019-01-25] MEDS ORDERED: METHADONE HCL 10 MG TABLET (FOR DETOX USE ONLY) PO ONE (10:00)
[2019-01-25] MEDS: PRENATAL VITAMINS W/ FOLIC ACID TABLET (FP) PO SCH (11:00)
[2019-01-25] MEDS: NICOTINE 21 MG/24 HOURS TOPICAL PATCH TD SCH (11:00)
--- NOTE | 2019-01-25 12:26 | PN ---
S CIWA - CIWA Score Nausea/Vomitin-No Nausea/No Vomiting Muscle Tremors: None Anxiety: 2 Agitation: 0-Normal Activity Paroxysmal Sweats: No Perspiration Orientation: 0-Oriented Tacttile Disturbances: 1-Very Mild Itch/Numbness Auditory Disturbances: 0-None Visual Disturbances: 2-Mild Sensitivity Headache: 0-None Present CIWA-Ar Total Score: 5 S COWS - Scale Resting Pulse: 1= [place] 81-100 Sweatin= No chills or Flushing Restless Observation: 0= Sits Still Pupil Size: 0= Normal to Room Light Bone or Joint Aches: 2= Severe Diffuse Aches Runny Nose/ Eye Tearin= None GI Upset > 30mins: 0= None Tremor Observation of Outstretched Hands: 0= None Yawning Observation: 2= >3x During Session Anxiety or Irritability: 2=Irritable/Anxious Goose Flesh Skin: 0=Smooth Skin COWS Score: 7 S Progress Note (SOAP) Subjective: Body Aches, Anxious, Fatigue. Objective: PATIENT A & O X 3. IN NO ACUTE DISTRESS. 01/25/19 12:22 Vital Signs Temperature 98.3 F 01/25/19 09:24 Pulse Rate 86 01/25/19 09:24 Respiratory Rate 18 01/25/19 09:24 Blood Pressure 144/70 01/25/19 09:24 O2 Sat by Pulse Oximetry (%) PATIENT REFUSED TO HAVE ADMISSION LABS DRAWN. 01/25/19 12:23 Assessment: 01/25/19 12:23 WITHDRAWAL SYMPTOMS. Plan: CONTINUE DETOX. PATIENT SCHEDULED FOR D/C FROM DETOX UNIT TOMORROW.
[2019-01-25] MEDS ORDERED: hydrOXYzine HCL 25 MG TABLET (FP) PO PRN (16:37)
[2019-01-25] MEDS: THIAMINE HCL 100 MG TABLET (FP) PO SCH (21:10)
[2019-01-26] MEDS ORDERED: diazePAM 5 MG TABLET PO ONE (06:00)
[2019-01-26] MEDS ORDERED: METHADONE HCL 5 MG TABLET (FOR DETOX USE ONLY) PO ONE (06:00)
[2019-01-26 06:10] VITALS: BP 119/78; PULSE 75; TEMP 97.7
--- NOTE | 2019-01-26 09:06 | DS ---
[facility] Detox Discharge Summary Admission Date: 01/23/19 Discharge Date: 01/26/19 - History Present History: Alcohol Dependence, Cannabis Dependence, Cocaine Dependence, Opioid Dependence - Physical Exam Results Vital Signs: Vital Signs Temperature 97.7 F 01/26/19 06:00 Pulse Rate 75 01/26/19 06:00 Respiratory Rate 18 01/26/19 06:00 Blood Pressure 119/78 01/26/19 06:00 O2 Sat by Pulse Oximetry (%) - Treatment Hospital Course: Detox Protocol Followed, Detoxed Safely, Responded well, Discharged Condition Good, Rehab Referral Accepted - Medication Discharge Medications: Ambulatory Orders NK [No Known Home Medication] 10/18/18 - Diagnosis (1) Alcohol abuse Current Visit: Yes Status: Acute (2) Dehydration Current Visit: Yes Status: Acute (3) Uncomplicated sedative, hypnotic or anxiolytic withdrawal Current Visit: Yes Status: Chronic (4) Substance-induced anxiety disorder Current Visit: No Status: Acute (5) Substance-induced sleep disorder Current Visit: No Status: Acute (6) Cannabis dependence Current Visit: No Status: Chronic (7) Cocaine dependence Current Visit: Yes Status: Chronic Qualifiers: Substance use status: uncomplicated Qualified Code(s): F14.20 - Cocaine dependence, uncomplicated (8) History of facial surgery Current Visit: No Status: Chronic (9) IVDU (intravenous drug user) Current Visit: Yes Status: Chronic (10) Nicotine dependence Current Visit: Yes Status: Chronic Qualifiers: Nicotine product type: cigarettes Substance use status: uncomplicated Qualified Code(s): F17.210 - Nicotine dependence, cigarettes, uncomplicated (11) Opioid dependence with withdrawal Current Visit: Yes Status: Chronic (12) PTSD (post-traumatic stress disorder) Current Visit: No Status: Chronic - AMA Did Patient Leave Against Medical Advice: No (going home; declined aftercare/ rehab.)
== END 2019-01-26 09:06 | disposition home or self-care (01) | DRG 773 ==
LOC: YASAS 12:03 → Y6N 16:45
PROVIDERS: ADMIT Surgery; ATTEND Surgery
PROC: HZ2ZZZZ Detoxification Services for Substance Abuse Treatment (ICD-10-PCS; principal; 2019-01-23)
DX: F11.23 Opioid dependence with withdrawal (principal); F10.230 Alcohol dependence with withdrawal, uncomplicated; F13.230 Sedative, hypnotic or anxiolytic dependence with withdrawal, uncomplicated; F12.20 Cannabis dependence, uncomplicated; F17.210 Nicotine dependence, cigarettes, uncomplicated; F19.280 Other psychoactive substance dependence with psychoactive substance-induced anxiety disorder; F19.282 Other psychoactive substance dependence with psychoactive substance-induced sleep disorder; F43.10 Post-traumatic stress disorder, unspecified; E86.0 Dehydration; R63.4 Abnormal weight loss; Z68.20 Body mass index [BMI] 20.0-20.9, adult; Z98.890 Other specified postprocedural states

== ENCOUNTER 2019-05-25 11:59 | Inpatient (IN) | payer OTHER ==
[2019-05-25 12:27] VITALS: BMI 26.4
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
--- NOTE | 2019-05-25 15:35 | PN ---
"Teaching Attending Note Name of Resident: Darlin Vicente ATTENDING PHYSICIAN STATEMENT I saw and evaluated the patient. I reviewed the resident's note and discussed the case with the resident. I agree with the resident's findings and plan as documented. SUBJECTIVE: 34 y.o. male here for heroin and etoh detox , reports 10 bags heroin daily, IV x 10mo. latest use 10 pm yesterday , OD x 1 , one year ago Narcan by EMS , taken to hospital in [place] does not recall which one [place] or [facility] . EtOH: Daily x 1 week. Drinks minimum 1 pint vodka daily. Last drink 2 days ago. Has passed out multiple times from drinking. Never had a seizure from not drinking. Suboxone: Used 3 days ago, unsure of dose. Does not use regularly Xanax: Uses 2-3x/ week. Last use 1 week ago., uses anywhere from 2-10 x 2mg sticks. Marijuana: daily use x 15-20 years. Smokes 3-5 blunts per day. Cocaine:occasional use Cigs: 1/2 pack day x 5 years OBJECTIVE: wnwd Vital Signs - 24 hr 05/25/19 05/25/19 12:15 17:25 Temperature 98.4 F 98.1 F Pulse Rate 67 75 Respiratory 17 18 Rate Blood Pressure 142/97 111/59 L This report was requested by: Mary Brasher | Reference #: [id number] Others' Prescriptions Patient Name: Satnam Mackey Date: 1985 Address: [address] [place], [place] [id number] Sex: Male Rx Written Rx Dispensed Drug Quantity Days Supply Prescriber Name 01/26/2019 01/27/2019 chlordiazepoxide 25 mg capsule 18 3 Elo Arriola NP Patient Name: Satnam Mackey Date: 1985 Address: [address] [place] [address] Sex: Male Rx Written Rx Dispensed Drug Quantity Days Supply Prescriber Name 08/06/2018 08/06/2018 suboxone 8 mg-2 mg sl film 7 7 Esperanza Connors NP ASSESSMENT AND PLAN: Opioid dependence - Methadone detox EtoH USE, EPISODIC / SEDATIVE USE, EPISODIC - lIBRIUM DETOX CANNABIS dependence/ cocaine use, episodic nicotine dependence - smoking cessation counseling ."
[2019-05-25] MEDS ORDERED: MAG HYDROX/AL HYDROX/SIMETH 30 ML UNIT-DOSE CUP PO PRN (15:40)
[2019-05-25] MEDS ORDERED: cloNIDine HCL 0.1 MG TABLET PO PRN (15:40)
[2019-05-25] MEDS ORDERED: ACETAMINOPHEN 325 MG TABLET (FP) PO PRN ×2 (15:40)
[2019-05-25] MEDS ORDERED: MAGNESIUM CITRATE 300 ML BOTTLE PO PRN (15:40)
[2019-05-25] MEDS ORDERED: MENTHOL/PHENOL 1 EACH UD MM PRN (15:40)
[2019-05-25] MEDS ORDERED: BISMUTH SUBSALICYLATE 524 MG/30 ML UD PO PRN (15:40)
[2019-05-25] MEDS ORDERED: IBUPROFEN 400 MG TABLET (FP) PO PRN (15:40)
[2019-05-25] MEDS ORDERED: MAGNESIUM HYDROX 2400MG/30ML ORAL SUSPENSION 30 ML CUP PO PRN (15:40)
[2019-05-25] MEDS ORDERED: diazePAM 5 MG TABLET PO ONE (16:30)
[2019-05-25] MEDS ORDERED: METHADONE HCL 10 MG TABLET (FOR DETOX USE ONLY) PO ONE (16:30)
[2019-05-25] MEDS: diazePAM 5 MG TABLET PO PRN (20:37)
[2019-05-25] MEDS: hydrOXYzine PAMOATE 25 MG CAPSULE (FP) PO PRN (22:25)
[2019-05-25] MEDS: METHOCARBAMOL 500 MG TABLET PO PRN (22:25)
[2019-05-25] MEDS: diazePAM 5 MG TABLET PO SCH (22:25)
[2019-05-25] MEDS: THIAMINE HCL 100 MG TABLET (FP) PO SCH (22:25)
[2019-05-26] MEDS: diazePAM 5 MG TABLET PO SCH ×3 (05:57→22:30)
[2019-05-26] MEDS ORDERED: METHADONE HCL 5 MG TABLET (FOR DETOX USE ONLY) ONE (09:00)
[2019-05-26] MEDS ORDERED: METHADONE HCL 10 MG TABLET (FOR DETOX USE ONLY) ONE (09:00)
[2019-05-26] MEDS ORDERED: METHADONE (DETOX) 20 MG, METHADONE (DETOX) 5 MG PO ONE (10:00)
[2019-05-26] MEDS: PRENATAL VITAMINS W/ FOLIC ACID TABLET (FP) PO SCH (10:32)
[2019-05-26 10:55] LABS: HEMATOCRIT 40.6 % (35.4-49); HEMOGLOBIN 13.6 GM/dL (11.7-16.9); MCHC 33.5 g/dl (32.0-35.9); MEAN CELL VOLUME 86.6 fl (80-96); MEAN PLT VOLUME 9.3 fl (7.5-11.1); PLATELET COUNT 231 K/MM3 (134-434); RBC 4.69 M/mm3 (4.00-5.60); RDW 13.3 % (11.9-15.9); WHITE BLOOD COUNT 4.6 K/mm3 (4.0-10.0)
[2019-05-26 11:03] LABS: ALBUMIN 3.2 g/dl (3.4-5.0); BILIRUBIN,TOTAL 0.4 mg/dL (0.2-1); CALCIUM 8.4 mg/dL (8.5-10.1); CREATININE 0.9 mg/dL (0.55-1.3); POTASSIUM 3.8 mmol/L (3.5-5.1); TOT PROT 7.1 g/dl (6.4-8.2)
--- NOTE | 2019-05-26 14:15 | PN ---
[facility] CIWA - CIWA Score Nausea/Vomitin-Mild Nausea/No Vomiting Muscle Tremors: 2 Anxiety: 2 Agitation: 2 Paroxysmal Sweats: No Perspiration Orientation: 0-Oriented Tacttile Disturbances: 1-Very Mild Itch/Numbness Auditory Disturbances: 0-None Visual Disturbances: 0-None Headache: 2-Mild CIWA-Ar Total Score: 10 BHS COWS - Scale Resting Pulse: 0= [place] 80 or Below Sweatin= Chills/Flushing Restless Observation: 1= Difficult to Sit Still Pupil Size: 1= Pupils >than Normal Bone or Joint Aches: 1= Mild Discomfort Runny Nose/ Eye Tearin= Nasal Congestion GI Upset > 30mins: 1= Stomach Cramp Tremor Observation of Outstretched Hands: 1= Tremor [place], Not Seen Yawning Observation: 1= 1-2x During Session Anxiety or Irritability: 2=Irritable/Anxious Goose Flesh Skin: 0=Smooth Skin COWS Score: 10 S Progress Note (SOAP) Subjective: alert,irritable,anxious,interrupted sleep,tremor,pain in the body and back Objective: 05/26/19 14:16 Vital Signs Temperature 97.9 F 05/26/19 13:20 Pulse Rate 73 05/26/19 13:20 Respiratory Rate 16 05/26/19 13:20 Blood Pressure 119/68 05/26/19 13:20 O2 Sat by Pulse Oximetry (%) Laboratory Last Values WBC 4.6 K/mm3 (4.0-10.0) 05/26/19 08:15 RBC 4.69 M/mm3 (4.00-5.60) 05/26/19 08:15 Hgb 13.6 GM/dL (11.7-16.9) 05/26/19 08:15 Hct 40.6 % (35.4-49) 05/26/19 08:15 MCV 86.6 fl (80-96) 05/26/19 08:15 MCH 29.0 pg (25.7-33.7) D 05/26/19 08:15 MCHC 33.5 g/dl (32.0-35.9) 05/26/19 08:15 RDW 13.3 % (11.9-15.9) D 05/26/19 08:15 Plt Count 231 K/MM3 (134-434) 05/26/19 08:15 MPV 9.3 fl (7.5-11.1) 05/26/19 08:15 Sodium 138 mmol/L (136-145) 05/26/19 08:15 Potassium 3.8 mmol/L (3.5-5.1) 05/26/19 08:15 Chloride 103 mmol/L (98-107) 05/26/19 08:15 Carbon Dioxide 32 mmol/L (21-32) 05/26/19 08:15 Anion Gap 4 MMOL/L (8-16) L 05/26/19 08:15 BUN 9.0 mg/dL (7-18) 05/26/19 08:15 Creatinine 0.9 mg/dL (0.55-1.3) 05/26/19 08:15 Est GFR (CKD-EPI)AfAm 128.70 05/26/19 08:15 Est GFR (CKD-EPI)NonAf 111.04 05/26/19 08:15 Random Glucose 84 mg/dL (74-106) 05/26/19 08:15 Calcium 8.4 mg/dL (8.5-10.1) L 05/26/19 08:15 Total Bilirubin 0.4 mg/dL (0.2-1) 05/26/19 08:15 AST 86 U/L (15-37) H 05/26/19 08:15 ALT 98 U/L (13-61) H 05/26/19 08:15 Alkaline Phosphatase 78 U/L (45-117) 05/26/19 08:15 Total Protein 7.1 g/dl (6.4-8.2) 05/26/19 08:15 Albumin 3.2 g/dl (3.4-5.0) L 05/26/19 08:15 05/26/19 14:17 rpr pending Assessment: 05/26/19 14:17 withdrawal symptom Plan: continue detox methadone and valium regimen
[2019-05-26] MEDS: diazePAM 5 MG TABLET PO PRN (16:52)
[2019-05-26] MEDS: THIAMINE HCL 100 MG TABLET (FP) PO SCH (22:29)
[2019-05-26] MEDS: MELATONIN 5 MG TABLETS PO PRN (22:30)
[2019-05-26] MEDS: METHOCARBAMOL 500 MG TABLET PO PRN (22:31)
[2019-05-27] MEDS: diazePAM 5 MG TABLET PO SCH ×2 (05:35→17:40)
[2019-05-27] MEDS ORDERED: METHADONE HCL 10 MG TABLET (FOR DETOX USE ONLY) PO ONE (10:00)
[2019-05-27] MEDS ORDERED: ONDANSETRON *ODT* 4 MG TABLET SL PRN (10:27)
--- NOTE | 2019-05-27 10:28 | PN ---
[facility] CIWA - CIWA Score Nausea/Vomitin-No Nausea/No Vomiting Muscle Tremors: 2 Anxiety: 2 Agitation: 2 Paroxysmal Sweats: 2 Orientation: 0-Oriented Tacttile Disturbances: 0-None Auditory Disturbances: 0-None Visual Disturbances: 0-None Headache: 0-None Present CIWA-Ar Total Score: 8 BHS COWS - Scale Resting Pulse: 0= [place] 80 or Below Sweatin= Chills/Flushing Restless Observation: 1= Difficult to Sit Still Pupil Size: 0= Normal to Room Light Bone or Joint Aches: 0= None Runny Nose/ Eye Tearin= Nasal Congestion GI Upset > 30mins: 2= Nausea/Diarrhea Tremor Observation of Outstretched Hands: 1= Tremor [place], Not Seen Yawning Observation: 1= 1-2x During Session Anxiety or Irritability: 1=Feels Anxious/Irritable Goose Flesh Skin: 0=Smooth Skin COWS Score: 8 S Progress Note (SOAP) Subjective: sweats shakes chills body aches interrupted sleep nausea Objective: 05/27/19 10:26 Vital Signs Temperature 97.5 F L 05/27/19 10:24 Pulse Rate 66 05/27/19 10:24 Respiratory Rate 17 05/27/19 10:24 Blood Pressure 106/60 05/27/19 10:24 O2 Sat by Pulse Oximetry (%) Laboratory Tests 05/26/19 05/26/19 05/26/19 08:15 08:15 08:15 WBC 4.6 RBC 4.69 Hgb 13.6 Hct 40.6 MCV 86.6 MCH 29.0 D MCHC 33.5 RDW 13.3 D Plt Count 231 MPV 9.3 Sodium 138 Potassium 3.8 Chloride 103 Carbon Dioxide 32 Anion Gap 4 L BUN 9.0 Creatinine 0.9 Est GFR (CKD-EPI)AfAm 128.70 Est GFR (CKD-EPI)NonAf 111.04 Random Glucose 84 Calcium 8.4 L Total Bilirubin 0.4 AST 86 H ALT 98 H Alkaline Phosphatase 78 Total Protein 7.1 Albumin 3.2 L RPR Titer Nonreactive labs noted aaox3 lying in bed no acute distress Assessment: 05/27/19 10:27 withdrawal sx Plan: continue detox increase fluids zofran sl prn
[2019-05-27] MEDS: PRENATAL VITAMINS W/ FOLIC ACID TABLET (FP) PO SCH (11:03)
[2019-05-27] MEDS: diazePAM 5 MG TABLET PO PRN ×2 (12:55→22:21)
[2019-05-27] MEDS: THIAMINE HCL 100 MG TABLET (FP) PO SCH (22:19)
[2019-05-28] MEDS ORDERED: diazePAM 5 MG TABLET PO ONE (06:00)
[2019-05-28] MEDS ORDERED: METHADONE HCL 10 MG TABLET (FOR DETOX USE ONLY) ONE (08:48)
[2019-05-28] MEDS ORDERED: METHADONE HCL 5 MG TABLET (FOR DETOX USE ONLY) ONE (08:48)
[2019-05-28] MEDS ORDERED: METHADONE (DETOX) 10 MG, METHADONE (DETOX) 5 MG PO ONE (10:00)
--- NOTE | 2019-05-28 13:45 | PN ---
S CIWA - CIWA Score Nausea/Vomitin-No Nausea/No Vomiting Muscle Tremors: 2 Anxiety: 1-Mildly Anxious Agitation: 1-Slight > Activity Paroxysmal Sweats: 1-Minimal Palms Moist Orientation: 0-Oriented Tacttile Disturbances: 0-None Auditory Disturbances: 0-None Visual Disturbances: 0-None Headache: 0-None Present CIWA-Ar Total Score: 5 BHS COWS - Scale Resting Pulse: 0= [place] 80 or Below Sweatin= Chills/Flushing Restless Observation: 1= Difficult to Sit Still Pupil Size: 0= Normal to Room Light Bone or Joint Aches: 1= Mild Discomfort Runny Nose/ Eye Tearin= None GI Upset > 30mins: 0= None Tremor Observation of Outstretched Hands: 1= Tremor [place], Not Seen Yawning Observation: 1= 1-2x During Session Anxiety or Irritability: 1=Feels Anxious/Irritable Goose Flesh Skin: 0=Smooth Skin COWS Score: 6 S Progress Note (SOAP) Subjective: sweats shakes body aches Objective: 05/28/19 13:44 Vital Signs Temperature 97.0 F L 05/28/19 09:44 Pulse Rate 63 05/28/19 09:44 Respiratory Rate 18 05/28/19 09:44 Blood Pressure 114/68 05/28/19 09:44 O2 Sat by Pulse Oximetry (%) Laboratory Tests 05/26/19 05/26/19 05/26/19 08:15 08:15 08:15 WBC 4.6 RBC 4.69 Hgb 13.6 Hct 40.6 MCV 86.6 MCH 29.0 D MCHC 33.5 RDW 13.3 D Plt Count 231 MPV 9.3 Sodium 138 Potassium 3.8 Chloride 103 Carbon Dioxide 32 Anion Gap 4 L BUN 9.0 Creatinine 0.9 Est GFR (CKD-EPI)AfAm 128.70 Est GFR (CKD-EPI)NonAf 111.04 Random Glucose 84 Calcium 8.4 L Total Bilirubin 0.4 AST 86 H ALT 98 H Alkaline Phosphatase 78 Total Protein 7.1 Albumin 3.2 L RPR Titer Nonreactive labs noted aaox3 ambulating no acute distress Assessment: 05/28/19 13:44 withdrawal sx Plan: continue detox increase fluids
[2019-05-28] MEDS: PRENATAL VITAMINS W/ FOLIC ACID TABLET (FP) PO SCH (14:08)
[2019-05-28] MEDS: diazePAM 5 MG TABLET PO PRN (14:08)
[2019-05-28] MEDS: METHOCARBAMOL 500 MG TABLET PO PRN ×2 (14:09→22:30)
[2019-05-28] MEDS: THIAMINE HCL 100 MG TABLET (FP) PO SCH (22:29)
[2019-05-28] MEDS: hydrOXYzine PAMOATE 25 MG CAPSULE (FP) PO PRN (22:30)
[2019-05-28] MEDS: MELATONIN 5 MG TABLETS PO PRN (22:30)
[2019-05-29] MEDS ORDERED: METHADONE HCL 10 MG TABLET (FOR DETOX USE ONLY) PO ONE (10:00)
[2019-05-29] MEDS: PRENATAL VITAMINS W/ FOLIC ACID TABLET (FP) PO SCH (10:21)
[2019-05-29] MEDS: METHOCARBAMOL 500 MG TABLET PO PRN (10:22)
--- NOTE | 2019-05-29 12:23 | PN ---
[facility] CIWA - CIWA Score Nausea/Vomitin-No Nausea/No Vomiting Muscle Tremors: 2 Anxiety: 1-Mildly Anxious Agitation: 0-Normal Activity Paroxysmal Sweats: 1-Minimal Palms Moist Orientation: 0-Oriented Tacttile Disturbances: 0-None Auditory Disturbances: 0-None Visual Disturbances: 0-None Headache: 0-None Present CIWA-Ar Total Score: 4 BHS COWS - Scale Resting Pulse: 0= [place] 80 or Below Sweatin= Chills/Flushing Restless Observation: 0= Sits Still Pupil Size: 0= Normal to Room Light Bone or Joint Aches: 1= Mild Discomfort Runny Nose/ Eye Tearin= None GI Upset > 30mins: 0= None Tremor Observation of Outstretched Hands: 1= Tremor [place], Not Seen Yawning Observation: 1= 1-2x During Session Anxiety or Irritability: 1=Feels Anxious/Irritable Goose Flesh Skin: 0=Smooth Skin COWS Score: 5 [facility] Progress Note (SOAP) Subjective: feeling better anxiety Objective: 05/29/19 12:23 Vital Signs Temperature 97.7 F 05/29/19 09:49 Pulse Rate 72 05/29/19 09:49 Respiratory Rate 18 05/29/19 09:49 Blood Pressure 110/79 05/29/19 09:49 O2 Sat by Pulse Oximetry (%) aaox3 ambulating no acute distress Assessment: 05/29/19 12:23 mild withdrawal sx Plan: continue detox d/c in am
[2019-05-29] MEDS: THIAMINE HCL 100 MG TABLET (FP) PO SCH (22:56)
[2019-05-30] MEDS ORDERED: METHADONE HCL 5 MG TABLET (FOR DETOX USE ONLY) PO ONE (06:00)
[2019-05-30 09:46] VITALS: BP 183/79; PULSE 98; TEMP 99.1
[2019-05-30] MEDS: PRENATAL VITAMINS W/ FOLIC ACID TABLET (FP) PO SCH (10:22)
--- NOTE | 2019-05-30 16:08 | DS ---
[facility] Detox Discharge Summary Admission Date: 05/25/19 Discharge Date: 05/30/19 - History Present History: Alcohol Dependence, Cannabis Dependence, Cocaine Dependence, Opioid Dependence Additional Comments: Pt completed detox successfully and discharged safely. Pt instructed to follow up with PCP within one week. Pertinent Past History: Nicotine dependence - Physical Exam Results Vital Signs: Vital Signs Temperature 99.1 F 05/30/19 09:46 Pulse Rate 98 H 05/30/19 09:46 Respiratory Rate 18 05/30/19 09:46 Blood Pressure 183/79 H 05/30/19 09:46 O2 Sat by Pulse Oximetry (%) Elevated b/p: on clonidine prn Pertinent Admission Physical Exam Findings: Withdrawal sxs Laboratory Tests 05/26/19 05/26/19 05/26/19 08:15 08:15 08:15 WBC 4.6 RBC 4.69 Hgb 13.6 Hct 40.6 MCV 86.6 MCH 29.0 D MCHC 33.5 RDW 13.3 D Plt Count 231 MPV 9.3 Sodium 138 Potassium 3.8 Chloride 103 Carbon Dioxide 32 Anion Gap 4 L BUN 9.0 Creatinine 0.9 Est GFR (CKD-EPI)AfAm 128.70 Est GFR (CKD-EPI)NonAf 111.04 Random Glucose 84 Calcium 8.4 L Total Bilirubin 0.4 AST 86 H ALT 98 H Alkaline Phosphatase 78 Total Protein 7.1 Albumin 3.2 L RPR Titer Nonreactive Labs reviewed - Treatment Hospital Course: Detox Protocol Followed, Detoxed Safely, Responded well, Discharged Condition Good - Medication Discharge Medications: Ambulatory Orders NK [No Known Home Medication] 10/18/18 - Diagnosis (1) Alcohol dependence with uncomplicated withdrawal Status: Chronic (2) Cannabis dependence Status: Chronic (3) Cocaine dependence Status: Chronic Qualifiers: Substance use status: uncomplicated Qualified Code(s): F14.20 - Cocaine dependence, uncomplicated (4) Nicotine dependence Status: Chronic Qualifiers: Nicotine product type: cigarettes (5) Opioid dependence with withdrawal Status: Chronic (6) Elevated blood-pressure reading, without diagnosis of hypertension Status: Acute - AMA Did Patient Leave Against Medical Advice: No (Follow up with PCP within one week )
== END 2019-05-30 11:24 | disposition home or self-care (01) | DRG 773 ==
LOC: YASAS 11:59 → Y6N 16:18
PROVIDERS: ADMIT Allergy & Immunology; ATTEND Allergy & Immunology
PROC: HZ2ZZZZ Detoxification Services for Substance Abuse Treatment (ICD-10-PCS; principal; 2019-05-25)
DX: F11.23 Opioid dependence with withdrawal (principal); F10.230 Alcohol dependence with withdrawal, uncomplicated; F13.20 Sedative, hypnotic or anxiolytic dependence, uncomplicated; F14.20 Cocaine dependence, uncomplicated; F12.20 Cannabis dependence, uncomplicated; F17.210 Nicotine dependence, cigarettes, uncomplicated; R03.0 Elevated blood-pressure reading, without diagnosis of hypertension; Z87.828 Personal history of other (healed) physical injury and trauma
CPT/HCPCS: 36415; 80053; 85027; 86593

== ENCOUNTER 2021-07-13 16:15 | Inpatient (IN) | payer OTHER ==
[2021-07-13 16:51] VITALS: BMI 21.9
[2021-07-13] MEDS ORDERED: IBUPROFEN 400 MG TABLET (FP) PO PRN (17:15)
[2021-07-13] MEDS ORDERED: BISMUTH SUBSALICYLATE 524 MG/30 ML PO PRN (17:15)
[2021-07-13] MEDS ORDERED: METHOCARBAMOL 500 MG TABLET PO PRN (17:15)
[2021-07-13] MEDS ORDERED: MAGNESIUM HYDROX 2400MG/30ML ORAL SUSPENSION 30 ML CUP PO PRN (17:15)
[2021-07-13] MEDS ORDERED: MENTHOL/PHENOL 1 EACH UD MM PRN (17:15)
[2021-07-13] MEDS ORDERED: ACETAMINOPHEN 325 MG TABLET (FP) PO PRN ×2 (17:15)
[2021-07-13] MEDS ORDERED: MAG HYDROX/AL HYDROX/SIMETH 30 ML UNIT-DOSE CUP PO PRN (17:15)
[2021-07-13] MEDS ORDERED: ONDANSETRON *ODT* 4 MG TABLET SL PRN (17:15)
[2021-07-13] MEDS ORDERED: P-EPHED 60MG/TRIPROLIDI 2.5MG TABLET PO PRN (17:15)
[2021-07-13] MEDS ORDERED: MAGNESIUM CITRATE 300 ML BOTTLE PO PRN (17:15)
[2021-07-13] MEDS ORDERED: NICOTINE POLACRILEX 2 MG GUM BUC PRN (17:15)
[2021-07-13] MEDS ORDERED: cloNIDine HCL 0.1 MG TABLET PO PRN (17:18)
[2021-07-14] MEDS: THIAMINE HCL 100 MG TABLET (FP) PO SCH ×2 (01:51→22:10)
[2021-07-14] MEDS: MELATONIN 5 MG TABLETS PO SCH ×2 (01:52→22:10)
[2021-07-14] MEDS ORDERED: PRENATAL VITAMINS W/ FOLIC ACID TABLET (FP) PO SCH (10:00)
[2021-07-14] MEDS ORDERED: methaDONE HCL 10 MG TABLET (FOR DETOX USE ONLY) PO ONE (10:20)
[2021-07-14] MEDS ORDERED: cloNIDine HCL 0.1 MG TABLET PO PRN (10:20)
[2021-07-14 10:34] LABS: HEMATOCRIT 34.5 % (35.4-49); HEMOGLOBIN 11.4 GM/dL (11.7-16.9); MCH 26.8 pg (25.7-33.7); MEAN PLT VOLUME 8.4 fl (7.5-11.1); PLATELET COUNT 205 10^3/uL (134-434); RBC 4.26 M/mm3 (4.00-5.60); RDW 14.1 % (11.9-15.9)
[2021-07-14] MEDS: hydrOXYzine PAMOATE 25 MG CAPSULE (FP) PO PRN ×2 (10:42→22:10)
[2021-07-14] MEDS: METHOCARBAMOL 500 MG TABLET PO PRN ×2 (10:42→22:10)
[2021-07-14 10:48] LABS: CALCIUM 8.4 mg/dL (8.5-10.1)
[2021-07-14 10:49] LABS: ALBUMIN 2.7 g/dl (3.4-5.0); BLOOD UREA NITROGEN 17.9 mg/dL (7-18)
[2021-07-14 10:51] LABS: CREATININE 0.8 mg/dL (0.55-1.3)
[2021-07-14 10:52] LABS: BILIRUBIN,TOTAL 0.2 mg/dL (0.2-1)
[2021-07-15] MEDS: METHOCARBAMOL 500 MG TABLET PO PRN (05:11)
[2021-07-15 07:40] VITALS: BP 120/70; PULSE 72; TEMP 97.7
[2021-07-16] MEDS ORDERED: methaDONE HCL 10 MG TABLET (FOR DETOX USE ONLY) PO ONE (10:00)
[2021-07-18] MEDS ORDERED: methaDONE HCL 10 MG TABLET (FOR DETOX USE ONLY) PO ONE (10:00)
== END 2021-07-15 09:06 | disposition left against medical advice (07) | DRG 770 ==
LOC: YASAS 16:15 → Y6N 19:42
PROVIDERS: ADMIT Allergy & Immunology; ATTEND Allergy & Immunology
PROC: HZ2ZZZZ Detoxification Services for Substance Abuse Treatment (ICD-10-PCS; principal; 2021-07-13)
DX: F11.23 Opioid dependence with withdrawal (principal); F14.20 Cocaine dependence, uncomplicated; F12.20 Cannabis dependence, uncomplicated; F17.213 Nicotine dependence, cigarettes, with withdrawal; Z56.0 Unemployment, unspecified; Z59.00 Homelessness unspecified
CPT/HCPCS: 36415; 80053; 85027; 86780; C9803; J0735; U0003; U0005

== ENCOUNTER 2021-11-10 08:36 | Inpatient (IN) | payer OTHER ==
[2021-11-10 09:15] VITALS: BMI 20.9
[2021-11-10] MEDS ORDERED: NICOTINE 10 MG CARTRIDGE (INHALER) IH PRN (10:20)
[2021-11-10] MEDS ORDERED: methaDONE HCL 10 MG TABLET (FOR DETOX USE ONLY) PO ONE (10:20)
[2021-11-10] MEDS ORDERED: cloNIDine HCL 0.1 MG TABLET PO PRN (10:20)
[2021-11-10] MEDS ORDERED: MAGNESIUM CITRATE 300 ML BOTTLE PO PRN (10:20)
[2021-11-10] MEDS ORDERED: IBUPROFEN 400 MG TABLET (FP) PO PRN (10:20)
[2021-11-10] MEDS ORDERED: MAG HYDROX/AL HYDROX/SIMETH 30 ML UNIT-DOSE CUP PO PRN (10:20)
[2021-11-10] MEDS ORDERED: METHOCARBAMOL 500 MG TABLET PO PRN (10:20)
[2021-11-10] MEDS ORDERED: BISMUTH SUBSALICYLATE 524 MG/30 ML PO PRN (10:20)
[2021-11-10] MEDS ORDERED: ACETAMINOPHEN 325 MG TABLET (FP) PO PRN ×2 (10:20)
[2021-11-10] MEDS ORDERED: MAGNESIUM HYDROX 2400MG/30ML ORAL SUSPENSION 30 ML CUP PO PRN (10:20)
[2021-11-10] MEDS ORDERED: BENZOCAINE/MENTHOL (CHLORASEPTIC ) LOZENGE MM PRN (10:20)
[2021-11-10] MEDS ORDERED: DICYCLOMINE HCL 10 MG CAPSULE PO PRN (10:20)
[2021-11-10] MEDS ORDERED: ONDANSETRON *ODT* 4 MG TABLET SL PRN (10:20)
[2021-11-10] MEDS ORDERED: LOPERAMIDE HCL 2 MG CAPSULE PO PRN (10:20)
[2021-11-10] MEDS ORDERED: methaDONE HCL 10 MG TABLET (FOR DETOX USE ONLY) ONE (13:03)
[2021-11-10] MEDS ORDERED: diazePAM 5 MG TABLET ONE (13:08)
[2021-11-10] MEDS: diazePAM 5 MG TABLET PO PRN ×2 (13:12→20:30)
[2021-11-10] MEDS: hydrOXYzine PAMOATE 25 MG CAPSULE (FP) PO SCH ×3 (15:27→22:28)
[2021-11-10] MEDS: THIAMINE HCL 100 MG TABLET (FP) PO SCH (22:28)
[2021-11-10] MEDS: MELATONIN 5 MG TABLETS PO SCH (22:28)
[2021-11-11] MEDS: hydrOXYzine PAMOATE 25 MG CAPSULE (FP) PO SCH (06:34)
[2021-11-11] MEDS: diazePAM 5 MG TABLET PO PRN ×3 (06:54→22:14)
[2021-11-11] MEDS ORDERED: hydrOXYzine PAMOATE 25 MG CAPSULE (FP) PO PRN (08:35)
[2021-11-11] MEDS ORDERED: methaDONE HCL 10 MG TABLET (FOR DETOX USE ONLY) ONE (09:44)
[2021-11-11] MEDS: PRENATAL VITAMINS W/ FOLIC ACID TABLET (FP) PO SCH (10:20)
[2021-11-11 12:42] LABS: HEMATOCRIT 36.1 % (35.4-49); HEMOGLOBIN 11.6 GM/dL (11.7-16.9); MCH 25.7 pg (25.7-33.7); MCHC 32.2 g/dl (32.0-35.9); MEAN PLT VOLUME 8.3 fl (7.5-11.1); PLATELET COUNT 231 10^3/uL (134-434); RBC 4.52 M/mm3 (4.00-5.60); RDW 14.5 % (11.9-15.9); WHITE BLOOD COUNT 4.7 K/mm3 (4.0-10.0)
[2021-11-11 13:09] LABS: ALBUMIN 3.1 g/dl (3.4-5.0); BLOOD UREA NITROGEN 20.6 mg/dL (7-18); CREATININE 0.8 mg/dL (0.55-1.3)
[2021-11-11 13:10] LABS: TOT PROT 7.5 g/dl (6.4-8.2)
[2021-11-11 13:11] LABS: BILIRUBIN,TOTAL 0.1 mg/dL (0.2-1); CALCIUM 8.9 mg/dL (8.5-10.1)
[2021-11-11] MEDS: THIAMINE HCL 100 MG TABLET (FP) PO SCH (22:14)
[2021-11-11] MEDS: MELATONIN 5 MG TABLETS PO SCH (22:14)
[2021-11-12] MEDS: diazePAM 5 MG TABLET PO PRN ×3 (05:30→20:14)
[2021-11-12] MEDS ORDERED: methaDONE HCL 10 MG TABLET (FOR DETOX USE ONLY) PO ONE (10:00)
[2021-11-12] MEDS: PRENATAL VITAMINS W/ FOLIC ACID TABLET (FP) PO SCH (10:08)
[2021-11-12] MEDS: MELATONIN 5 MG TABLETS PO SCH (22:14)
[2021-11-12] MEDS: THIAMINE HCL 100 MG TABLET (FP) PO SCH (22:14)
[2021-11-13] MEDS: diazePAM 5 MG TABLET PO PRN ×2 (06:23→10:25)
[2021-11-13] MEDS ORDERED: methaDONE HCL 10 MG TABLET (FOR DETOX USE ONLY) ONE (08:49)
[2021-11-13] MEDS: PRENATAL VITAMINS W/ FOLIC ACID TABLET (FP) PO SCH (10:27)
[2021-11-13 12:56] VITALS: BP 104/63; PULSE 80; TEMP 97.4
[2021-11-14] MEDS ORDERED: methaDONE HCL 10 MG TABLET (FOR DETOX USE ONLY) PO ONE (10:00)
== END 2021-11-13 16:37 | disposition left against medical advice (07) | DRG 770 ==
LOC: YASAS 08:36 → Y3N 12:15
PROVIDERS: ADMIT Allergy & Immunology; ATTEND Allergy & Immunology
PROC: HZ2ZZZZ Detoxification Services for Substance Abuse Treatment (ICD-10-PCS; principal; 2021-11-10)
DX: F11.23 Opioid dependence with withdrawal (principal); F14.20 Cocaine dependence, uncomplicated; F15.20 Other stimulant dependence, uncomplicated; F12.20 Cannabis dependence, uncomplicated; F17.210 Nicotine dependence, cigarettes, uncomplicated; F51.05 Insomnia due to other mental disorder; F43.10 Post-traumatic stress disorder, unspecified
CPT/HCPCS: 36415; 80053; 85027; 86780; 87811; C9803-CS; U0003; U0005

== ENCOUNTER 2021-12-05 19:14 | Inpatient (IN) | payer OTHER ==
[2021-12-05 20:00] VITALS: BMI 23.1
[2021-12-05] MEDS ORDERED: IBUPROFEN 400 MG TABLET (FP) PO PRN (22:01)
[2021-12-05] MEDS ORDERED: ONDANSETRON *ODT* 4 MG TABLET SL PRN (22:01)
[2021-12-05] MEDS ORDERED: DICYCLOMINE HCL 10 MG CAPSULE PO PRN (22:01)
[2021-12-05] MEDS ORDERED: BISMUTH SUBSALICYLATE 524 MG/30 ML PO PRN (22:01)
[2021-12-05] MEDS ORDERED: LOPERAMIDE HCL 2 MG CAPSULE PO PRN (22:01)
[2021-12-05] MEDS ORDERED: BENZOCAINE/MENTHOL (CHLORASEPTIC ) LOZENGE MM PRN (22:01)
[2021-12-05] MEDS ORDERED: MAG HYDROX/AL HYDROX/SIMETH 30 ML UNIT-DOSE CUP PO PRN (22:01)
[2021-12-05] MEDS ORDERED: NICOTINE POLACRILEX 2 MG GUM BUC PRN (22:01)
[2021-12-05] MEDS ORDERED: MAGNESIUM CITRATE 300 ML BOTTLE PO PRN (22:01)
[2021-12-05] MEDS ORDERED: MAGNESIUM HYDROX 2400MG/30ML ORAL SUSPENSION 30 ML CUP PO PRN (22:01)
[2021-12-05] MEDS ORDERED: METHOCARBAMOL 500 MG TABLET PO PRN (22:01)
[2021-12-05] MEDS ORDERED: ACETAMINOPHEN 325 MG TABLET (FP) PO PRN ×2 (22:01)
[2021-12-05] MEDS ORDERED: methaDONE HCL 10 MG TABLET (FOR DETOX USE ONLY) PO ONE (22:26)
[2021-12-06] MEDS ORDERED: methaDONE HCL 10 MG TABLET (FOR DETOX USE ONLY) ONE ×2 (00:54→10:15)
[2021-12-06] MEDS: MELATONIN 5 MG TABLETS PO PRN ×2 (00:58→22:23)
[2021-12-06] MEDS ORDERED: methaDONE HCL 10 MG TABLET (FOR DETOX USE ONLY) PO ONE (10:00)
[2021-12-06] MEDS: PRENATAL VITAMINS W/ FOLIC ACID TABLET (FP) PO SCH (10:56)
[2021-12-06] MEDS: cloNIDine HCL 0.1 MG TABLET PO PRN (22:21)
[2021-12-06] MEDS: THIAMINE HCL 100 MG TABLET (FP) PO SCH (22:21)
[2021-12-06] MEDS: hydrOXYzine PAMOATE 25 MG CAPSULE (FP) PO PRN (22:21)
[2021-12-07] MEDS ORDERED: methaDONE HCL 10 MG TABLET (FOR DETOX USE ONLY) PO ONE (10:00)
[2021-12-07] MEDS: PRENATAL VITAMINS W/ FOLIC ACID TABLET (FP) PO SCH (10:08)
[2021-12-07] MEDS: hydrOXYzine PAMOATE 25 MG CAPSULE (FP) PO PRN ×2 (10:08→22:13)
[2021-12-07] MEDS ORDERED: QUEtiapine FUMARATE 50 MG TABLET PO SCH (22:00)
[2021-12-07] MEDS: THIAMINE HCL 100 MG TABLET (FP) PO SCH (22:10)
[2021-12-07] MEDS: MELATONIN 5 MG TABLETS PO PRN (22:10)
[2021-12-07] MEDS: cloNIDine HCL 0.1 MG TABLET PO PRN (22:12)
[2021-12-08 09:16] VITALS: BP 108/70; PULSE 66; TEMP 98.4
[2021-12-08] MEDS ORDERED: methaDONE HCL 10 MG TABLET (FOR DETOX USE ONLY) PO ONE (10:00)
[2021-12-08 10:15] LABS: SARS-CoV-2 NAA Not Detected (Not Detected)
[2021-12-08] MEDS: PRENATAL VITAMINS W/ FOLIC ACID TABLET (FP) PO SCH (10:17)
== END 2021-12-08 12:26 | disposition other institution (70) | DRG 773 ==
LOC: YASAS 19:14 → Y6N 12-06 09:57
PROVIDERS: ADMIT Allergy & Immunology; ATTEND Surgery
PROC: HZ2ZZZZ Detoxification Services for Substance Abuse Treatment (ICD-10-PCS; principal; 2021-12-06)
DX: F11.23 Opioid dependence with withdrawal (principal); F14.20 Cocaine dependence, uncomplicated; F12.20 Cannabis dependence, uncomplicated; F17.210 Nicotine dependence, cigarettes, uncomplicated; F19.282 Other psychoactive substance dependence with psychoactive substance-induced sleep disorder; F19.24 Other psychoactive substance dependence with psychoactive substance-induced mood disorder; F43.10 Post-traumatic stress disorder, unspecified; Z56.0 Unemployment, unspecified; Z59.02 Unsheltered homelessness
CPT/HCPCS: C9803-CS; J0735; U0003; U0005

== ENCOUNTER 2021-12-08 11:56 | Inpatient (IN) | payer OTHER ==
[2021-12-08] MEDS ORDERED: LOPERAMIDE HCL 2 MG CAPSULE PO PRN (15:51)
[2021-12-08] MEDS ORDERED: guaiFENesin 200 MG/10 ML 10 ML UNIT-DOSE CUPS PO PRN (15:51)
[2021-12-08] MEDS ORDERED: P-EPHED 60MG/TRIPROLIDI 2.5MG TABLET PO PRN (15:51)
[2021-12-08] MEDS ORDERED: NICOTINE 10 MG CARTRIDGE (INHALER) IH PRN (15:51)
[2021-12-08] MEDS ORDERED: MAGNESIUM HYDROX 2400MG/30ML ORAL SUSPENSION 30 ML CUP PO PRN (15:51)
[2021-12-08] MEDS ORDERED: BENZOCAINE/MENTHOL (CHLORASEPTIC ) LOZENGE MM PRN (15:51)
[2021-12-08] MEDS ORDERED: MAG HYDROX/AL HYDROX/SIMETH 30 ML UNIT-DOSE CUP PO PRN (15:51)
[2021-12-08] MEDS ORDERED: MAGNESIUM CITRATE 300 ML BOTTLE PO PRN (15:51)
[2021-12-08] MEDS ORDERED: IBUPROFEN 400 MG TABLET (FP) PO PRN (15:51)
[2021-12-08] MEDS ORDERED: ACETAMINOPHEN 325 MG TABLET (FP) PO PRN (15:51)
[2021-12-08] MEDS: hydrOXYzine PAMOATE 25 MG CAPSULE (FP) PO SCH ×2 (18:05→21:07)
[2021-12-08] MEDS: THIAMINE HCL 100 MG TABLET (FP) PO SCH (21:05)
[2021-12-08] MEDS: MELATONIN 5 MG TABLETS PO SCH (21:05)
[2021-12-09] MEDS: hydrOXYzine PAMOATE 25 MG CAPSULE (FP) PO SCH ×4 (06:25→21:20)
[2021-12-09] MEDS: NICOTINE 7 MG/24 HOURS TOPICAL PATCH TD SCH (10:37)
[2021-12-09] MEDS: PRENATAL VITAMINS W/ FOLIC ACID TABLET (FP) PO SCH (10:37)
[2021-12-09] MEDS: MELATONIN 5 MG TABLETS PO SCH (21:20)
[2021-12-09] MEDS: QUEtiapine FUMARATE 50 MG TABLET PO SCH (21:20)
[2021-12-09] MEDS: THIAMINE HCL 100 MG TABLET (FP) PO SCH (21:20)
[2021-12-10] MEDS: hydrOXYzine PAMOATE 25 MG CAPSULE (FP) PO SCH (04:01)
[2021-12-10] MEDS ORDERED: hydrOXYzine PAMOATE 25 MG CAPSULE (FP) PO PRN (08:40)
[2021-12-10] MEDS ORDERED: IBUPROFEN 400 MG TABLET (FP) PO PRN ×2 (08:42)
[2021-12-10] MEDS: NICOTINE 7 MG/24 HOURS TOPICAL PATCH TD SCH (09:20)
[2021-12-10] MEDS: PRENATAL VITAMINS W/ FOLIC ACID TABLET (FP) PO SCH (09:20)
[2021-12-10] MEDS: QUEtiapine FUMARATE 50 MG TABLET PO SCH (21:30)
[2021-12-10] MEDS: THIAMINE HCL 100 MG TABLET (FP) PO SCH (21:30)
[2021-12-10] MEDS: MELATONIN 5 MG TABLETS PO SCH (21:30)
[2021-12-11] MEDS: PRENATAL VITAMINS W/ FOLIC ACID TABLET (FP) PO SCH (09:53)
[2021-12-11] MEDS: NICOTINE 7 MG/24 HOURS TOPICAL PATCH TD SCH (09:53)
[2021-12-11] MEDS: METHOCARBAMOL 750 MG TABLET PO PRN ×3 (10:31→21:43)
[2021-12-11] MEDS: THIAMINE HCL 100 MG TABLET (FP) PO SCH (21:43)
[2021-12-11] MEDS: MELATONIN 5 MG TABLETS PO SCH (21:43)
[2021-12-11] MEDS ORDERED: QUEtiapine FUMARATE 100 MG TABLET (FP) PO SCH (22:00)
[2021-12-12 06:47] VITALS: BP 109/73; PULSE 75; TEMP 97.1
[2021-12-12] MEDS: METHOCARBAMOL 750 MG TABLET PO PRN (08:38)
[2021-12-12] MEDS: NICOTINE 7 MG/24 HOURS TOPICAL PATCH TD SCH (10:18)
[2021-12-12] MEDS: PRENATAL VITAMINS W/ FOLIC ACID TABLET (FP) PO SCH (10:18)
== END 2021-12-12 12:35 | disposition left against medical advice (07) | DRG 770 ==
LOC: YASAS 11:56 → Y3E 11:57
PROVIDERS: ADMIT Psychiatry & Neurology Pain Medicine; ATTEND Allergy & Immunology
PROC: HZ42ZZZ Group Counseling for Substance Abuse Treatment, Cognitive-Behavioral (ICD-10-PCS; principal; 2021-12-08)
DX: F11.20 Opioid dependence, uncomplicated (principal); F14.20 Cocaine dependence, uncomplicated; F15.20 Other stimulant dependence, uncomplicated; F12.20 Cannabis dependence, uncomplicated; F17.210 Nicotine dependence, cigarettes, uncomplicated

== ENCOUNTER 2021-12-15 08:53 | Inpatient (IN) | payer OTHER ==
[2021-12-14 22:29] VITALS: BMI 24.4
[2021-12-15 08:44] LABS: HEMATOCRIT 32.8 % (35.4-49); HEMOGLOBIN 10.8 GM/dL (11.7-16.9); MCH 26.6 pg (25.7-33.7); MEAN CELL VOLUME 80.6 fl (80-96); MEAN PLT VOLUME 8.8 fl (7.5-11.1); PLATELET COUNT 199 10^3/uL (134-434); RBC 4.07 M/mm3 (4.00-5.60); RDW 14.7 % (11.9-15.9); WHITE BLOOD COUNT 6.7 K/mm3 (4.0-10.0)
[~2021-12-15 08:53] MED LIST: ACETAMINOPHEN 325 MG TABLET (FP) PO PRN; BENZOCAINE/MENTHOL (CHLORASEPTIC ) LOZENGE MM PRN; BISMUTH SUBSALICYLATE 524 MG/30 ML PO PRN; DICYCLOMINE HCL 10 MG CAPSULE PO PRN; IBUPROFEN 400 MG TABLET (FP) PO PRN; LOPERAMIDE HCL 2 MG CAPSULE PO PRN; MAG HYDROX/AL HYDROX/SIMETH 30 ML UNIT-DOSE CUP PO PRN; MAGNESIUM CITRATE 300 ML BOTTLE PO PRN; MAGNESIUM HYDROX 2400MG/30ML ORAL SUSPENSION 30 ML CUP PO PRN; NALOXONE HCL 0.4 MG/ML VIAL IM PRN; NICOTINE POLACRILEX 2 MG GUM BUC PRN; ONDANSETRON *ODT* 4 MG TABLET SL PRN; P-EPHED 60MG/TRIPROLIDI 2.5MG TABLET PO PRN; guaiFENesin 200 MG/10 ML 10 ML UNIT-DOSE CUPS PO PRN
[2021-12-15 09:47] LABS: CALCIUM 8.6 mg/dL (8.5-10.1)
[2021-12-15 09:48] LABS: ALBUMIN 3.4 g/dl (3.4-5.0); BLOOD UREA NITROGEN 19.8 mg/dL (7-18)
[2021-12-15 09:51] LABS: CREATININE 0.8 mg/dL (0.55-1.3)
[2021-12-15 09:53] LABS: BILIRUBIN,TOTAL 0.4 mg/dL (0.2-1); TOT PROT 7.3 g/dl (6.4-8.2)
[2021-12-15] MEDS ORDERED: methaDONE HCL 10 MG TABLET (FOR DETOX USE ONLY) PO ONE (13:21)
[2021-12-15] MEDS ORDERED: cloNIDine HCL 0.1 MG TABLET PO PRN (13:21)
[2021-12-15] MEDS ORDERED: methaDONE HCL 10 MG TABLET (FOR DETOX USE ONLY) ONE (13:25)
[2021-12-15] MEDS: PRENATAL VITAMINS W/ FOLIC ACID TABLET (FP) PO SCH (14:51)
[2021-12-15] MEDS: NICOTINE 21 MG/24 HOURS TOPICAL PATCH TD SCH (14:51)
[2021-12-15] MEDS: hydrOXYzine PAMOATE 25 MG CAPSULE (FP) PO PRN ×2 (17:39→22:32)
[2021-12-15] MEDS: METHOCARBAMOL 500 MG TABLET PO PRN (17:39)
[2021-12-15] MEDS: MELATONIN 5 MG TABLETS PO SCH (22:32)
[2021-12-15] MEDS: THIAMINE HCL 100 MG TABLET (FP) PO SCH (22:32)
[2021-12-16] MEDS ORDERED: methaDONE HCL 10 MG TABLET (FOR DETOX USE ONLY) ONE (09:08)
[2021-12-16] MEDS: PRENATAL VITAMINS W/ FOLIC ACID TABLET (FP) PO SCH (10:21)
[2021-12-16] MEDS: hydrOXYzine PAMOATE 25 MG CAPSULE (FP) PO PRN (10:21)
[2021-12-16] MEDS: METHOCARBAMOL 500 MG TABLET PO PRN (10:21)
[2021-12-16] MEDS: NICOTINE 21 MG/24 HOURS TOPICAL PATCH TD SCH (10:24)
[2021-12-16] MEDS: MELATONIN 5 MG TABLETS PO SCH (23:10)
[2021-12-16] MEDS: THIAMINE HCL 100 MG TABLET (FP) PO SCH (23:10)
[2021-12-17] MEDS ORDERED: methaDONE HCL 10 MG TABLET (FOR DETOX USE ONLY) PO ONE (10:00)
[2021-12-17] MEDS: NICOTINE 21 MG/24 HOURS TOPICAL PATCH TD SCH (10:20)
[2021-12-17] MEDS: PRENATAL VITAMINS W/ FOLIC ACID TABLET (FP) PO SCH (10:22)
[2021-12-17] MEDS: METHOCARBAMOL 500 MG TABLET PO PRN (15:41)
[2021-12-17] MEDS: hydrOXYzine PAMOATE 25 MG CAPSULE (FP) PO PRN (22:11)
[2021-12-17] MEDS: THIAMINE HCL 100 MG TABLET (FP) PO SCH (22:11)
[2021-12-17] MEDS: MELATONIN 5 MG TABLETS PO SCH (22:11)
[2021-12-18] MEDS ORDERED: methaDONE HCL 10 MG TABLET (FOR DETOX USE ONLY) ONE (09:59)
[2021-12-18] MEDS: PRENATAL VITAMINS W/ FOLIC ACID TABLET (FP) PO SCH (10:18)
[2021-12-18] MEDS: METHOCARBAMOL 500 MG TABLET PO PRN (10:18)
[2021-12-18] MEDS: hydrOXYzine PAMOATE 25 MG CAPSULE (FP) PO PRN (10:18)
[2021-12-18] MEDS: NICOTINE 21 MG/24 HOURS TOPICAL PATCH TD SCH (10:21)
[2021-12-18 13:13] VITALS: BP 102/65; PULSE 63; TEMP 97.1
[2021-12-18] MEDS ORDERED: QUEtiapine FUMARATE 100 MG TABLET (FP) PO SCH (22:00)
[2021-12-19] MEDS ORDERED: methaDONE HCL 10 MG TABLET (FOR DETOX USE ONLY) PO ONE (10:00)
== END 2021-12-18 12:23 | disposition left against medical advice (07) | DRG 770 ==
LOC: Y3N 12:58
PROVIDERS: ADMIT Allergy & Immunology; ATTEND Surgery
PROC: HZ2ZZZZ Detoxification Services for Substance Abuse Treatment (ICD-10-PCS; principal; 2021-12-15)
DX: F11.23 Opioid dependence with withdrawal (principal); F14.20 Cocaine dependence, uncomplicated; F12.20 Cannabis dependence, uncomplicated; F17.210 Nicotine dependence, cigarettes, uncomplicated; F19.24 Other psychoactive substance dependence with psychoactive substance-induced mood disorder; F43.10 Post-traumatic stress disorder, unspecified; G47.00 Insomnia, unspecified
CPT/HCPCS: 36415; 80053; 85027; 86780; C9803-CS; Q0162; U0003; U0005

== ENCOUNTER 2022-01-08 22:09 | Inpatient (IN) | payer OTHER ==
[2022-01-09 00:06] VITALS: BMI 23.1
[2022-01-09] MEDS ORDERED: MAG HYDROX/AL HYDROX/SIMETH 30 ML UNIT-DOSE CUP PO PRN (00:11)
[2022-01-09] MEDS ORDERED: IBUPROFEN 600 MG TABLET (FP) PO PRN (00:11)
[2022-01-09] MEDS ORDERED: ONDANSETRON *ODT* 4 MG TABLET SL PRN (00:11)
[2022-01-09] MEDS ORDERED: LOPERAMIDE HCL 2 MG CAPSULE PO PRN (00:11)
[2022-01-09] MEDS ORDERED: guaiFENesin 200 MG/10 ML 10 ML UNIT-DOSE CUPS PO PRN (00:11)
[2022-01-09] MEDS ORDERED: BENZOCAINE/MENTHOL (CHLORASEPTIC ) LOZENGE MM PRN (00:11)
[2022-01-09] MEDS ORDERED: MAGNESIUM CITRATE 300 ML BOTTLE PO PRN (00:11)
[2022-01-09] MEDS ORDERED: DICYCLOMINE HCL 10 MG CAPSULE PO PRN (00:11)
[2022-01-09] MEDS ORDERED: NICOTINE 10 MG CARTRIDGE (INHALER) IH PRN (00:11)
[2022-01-09] MEDS ORDERED: MAGNESIUM HYDROX 2400MG/30ML ORAL SUSPENSION 30 ML CUP PO PRN (00:11)
[2022-01-09] MEDS ORDERED: METHOCARBAMOL 500 MG TABLET PO PRN (00:11)
[2022-01-09] MEDS ORDERED: IBUPROFEN 400 MG TABLET (FP) PO PRN (00:11)
[2022-01-09] MEDS ORDERED: P-EPHED 60MG/TRIPROLIDI 2.5MG TABLET PO PRN (00:11)
[2022-01-09] MEDS ORDERED: MELATONIN 5 MG TABLETS PO PRN (00:11)
[2022-01-09] MEDS ORDERED: ACETAMINOPHEN 325 MG TABLET (FP) PO PRN ×2 (00:11)
[2022-01-09] MEDS ORDERED: BISMUTH SUBSALICYLATE 524 MG/30 ML PO PRN (00:11)
[2022-01-09] MEDS: PRENATAL VITAMINS W/ FOLIC ACID TABLET (FP) PO SCH (10:15)
[2022-01-09] MEDS: methaDONE HCL 10 MG TABLET PO SCH (11:31)
[2022-01-09] MEDS: hydrOXYzine PAMOATE 25 MG CAPSULE (FP) PO PRN (17:40)
[2022-01-09] MEDS ORDERED: diazePAM 5 MG TABLET PO PRN (22:00)
[2022-01-09] MEDS: THIAMINE HCL 100 MG TABLET (FP) PO SCH (22:37)
[2022-01-10] MEDS: methaDONE HCL 10 MG TABLET PO SCH (05:35)
[2022-01-10] MEDS ORDERED: diazePAM 5 MG TABLET PO PRN (08:49)
[2022-01-10] MEDS: PRENATAL VITAMINS W/ FOLIC ACID TABLET (FP) PO SCH (10:34)
[2022-01-10] MEDS: diazePAM 5 MG TABLET PO SCH ×3 (10:34→22:53)
[2022-01-10] MEDS: hydrOXYzine PAMOATE 25 MG CAPSULE (FP) PO PRN (10:34)
[2022-01-10] MEDS: QUEtiapine FUMARATE 50 MG TABLET PO PRN (22:52)
[2022-01-10] MEDS: THIAMINE HCL 100 MG TABLET (FP) PO SCH (22:53)
[2022-01-11] MEDS: diazePAM 5 MG TABLET PO SCH ×4 (05:27→22:14)
[2022-01-11] MEDS: methaDONE HCL 10 MG TABLET PO SCH (05:27)
[2022-01-11] MEDS: PRENATAL VITAMINS W/ FOLIC ACID TABLET (FP) PO SCH (10:48)
[2022-01-11] MEDS: QUEtiapine FUMARATE 50 MG TABLET PO PRN (22:13)
[2022-01-11] MEDS: THIAMINE HCL 100 MG TABLET (FP) PO SCH (22:14)
[2022-01-12] MEDS: diazePAM 5 MG TABLET PO SCH ×3 (05:40→22:24)
[2022-01-12] MEDS: methaDONE HCL 10 MG TABLET PO SCH (05:40)
[2022-01-12 10:13] LABS: HEMATOCRIT 39.8 % (35.4-49); HEMOGLOBIN 13.1 GM/dL (11.7-16.9); MCH 26.4 pg (25.7-33.7); MCHC 32.8 g/dl (32.0-35.9); MEAN CELL VOLUME 80.3 fl (80-96); MEAN PLT VOLUME 8.9 fl (7.5-11.1); PLATELET COUNT 229 10^3/uL (134-434); RBC 4.95 M/mm3 (4.00-5.60); RDW 14.8 % (11.9-15.9); WHITE BLOOD COUNT 4.3 K/mm3 (4.0-10.0)
[2022-01-12 10:35] LABS: ALBUMIN 3.3 g/dl (3.4-5.0); CALCIUM 9.2 mg/dL (8.5-10.1)
[2022-01-12 10:36] LABS: BLOOD UREA NITROGEN 14.8 mg/dL (7-18)
[2022-01-12 10:38] LABS: CREATININE 0.9 mg/dL (0.55-1.3)
[2022-01-12 10:41] LABS: BILIRUBIN,TOTAL 0.3 mg/dL (0.2-1); TOT PROT 7.6 g/dl (6.4-8.2)
[2022-01-12] MEDS: PRENATAL VITAMINS W/ FOLIC ACID TABLET (FP) PO SCH (10:41)
[2022-01-12] MEDS: THIAMINE HCL 100 MG TABLET (FP) PO SCH (22:25)
[2022-01-12] MEDS: QUEtiapine FUMARATE 50 MG TABLET PO PRN (22:26)
[2022-01-13] MEDS: methaDONE HCL 10 MG TABLET PO SCH (06:06)
[2022-01-13] MEDS: diazePAM 5 MG TABLET PO SCH ×2 (06:06→18:45)
[2022-01-13] MEDS: PRENATAL VITAMINS W/ FOLIC ACID TABLET (FP) PO SCH (10:46)
[2022-01-13] MEDS: THIAMINE HCL 100 MG TABLET (FP) PO SCH (22:33)
[2022-01-13] MEDS: QUEtiapine FUMARATE 50 MG TABLET PO PRN (22:34)
[2022-01-14] MEDS: methaDONE HCL 10 MG TABLET PO SCH (05:46)
[2022-01-14] MEDS ORDERED: diazePAM 5 MG TABLET PO ONE (06:00)
[2022-01-14 09:38] VITALS: BP 92/59; PULSE 76; TEMP 97.5
[2022-01-14] MEDS: PRENATAL VITAMINS W/ FOLIC ACID TABLET (FP) PO SCH (10:29)
== END 2022-01-14 10:55 | disposition home or self-care (01) | DRG 773 ==
LOC: YASAS 22:09 → Y3N 01-09 02:18
PROVIDERS: ADMIT Allergy & Immunology; ATTEND Surgery
PROC: HZ2ZZZZ Detoxification Services for Substance Abuse Treatment (ICD-10-PCS; principal; 2022-01-09)
DX: F11.23 Opioid dependence with withdrawal (principal); F14.20 Cocaine dependence, uncomplicated; F15.20 Other stimulant dependence, uncomplicated; F12.20 Cannabis dependence, uncomplicated; F13.10 Sedative, hypnotic or anxiolytic abuse, uncomplicated; F17.210 Nicotine dependence, cigarettes, uncomplicated; F43.10 Post-traumatic stress disorder, unspecified; F19.24 Other psychoactive substance dependence with psychoactive substance-induced mood disorder; F19.282 Other psychoactive substance dependence with psychoactive substance-induced sleep disorder; G47.00 Insomnia, unspecified; R94.5 Abnormal results of liver function studies; Z56.0 Unemployment, unspecified; Z59.00 Homelessness unspecified
CPT/HCPCS: 36415; 80053; 85027; C9803-CS; U0003; U0005

== ENCOUNTER 2022-01-19 11:57 | Inpatient (IN) | payer OTHER ==
[2022-01-19 12:28] VITALS: BMI 23.6
[2022-01-19] MEDS ORDERED: MAGNESIUM HYDROX 2400MG/30ML ORAL SUSPENSION 30 ML CUP PO PRN (14:09)
[2022-01-19] MEDS ORDERED: DICYCLOMINE HCL 10 MG CAPSULE PO PRN (14:09)
[2022-01-19] MEDS ORDERED: NICOTINE 10 MG CARTRIDGE (INHALER) IH PRN (14:09)
[2022-01-19] MEDS ORDERED: LOPERAMIDE HCL 2 MG CAPSULE PO PRN (14:09)
[2022-01-19] MEDS ORDERED: ONDANSETRON *ODT* 4 MG TABLET SL PRN (14:09)
[2022-01-19] MEDS ORDERED: MAGNESIUM CITRATE 300 ML BOTTLE PO PRN (14:09)
[2022-01-19] MEDS ORDERED: cloNIDine HCL 0.1 MG TABLET PO PRN (14:09)
[2022-01-19] MEDS ORDERED: MAG HYDROX/AL HYDROX/SIMETH 30 ML UNIT-DOSE CUP PO PRN (14:09)
[2022-01-19] MEDS ORDERED: BENZOCAINE/MENTHOL (CHLORASEPTIC ) LOZENGE MM PRN (14:09)
[2022-01-19] MEDS ORDERED: ACETAMINOPHEN 325 MG TABLET (FP) PO PRN ×2 (14:09)
[2022-01-19] MEDS ORDERED: IBUPROFEN 400 MG TABLET (FP) PO PRN (14:09)
[2022-01-19] MEDS ORDERED: methaDONE HCL 10 MG TABLET (FOR DETOX USE ONLY) PO ONE (14:09)
[2022-01-19] MEDS ORDERED: BISMUTH SUBSALICYLATE 524 MG/30 ML PO PRN (14:09)
[2022-01-19] MEDS ORDERED: IBUPROFEN 600 MG TABLET (FP) PO PRN (14:09)
[2022-01-19] MEDS ORDERED: NICOTINE POLACRILEX 2 MG GUM BUC PRN (14:09)
[2022-01-19] MEDS: METHOCARBAMOL 500 MG TABLET PO PRN (15:52)
[2022-01-19] MEDS: hydrOXYzine PAMOATE 25 MG CAPSULE (FP) PO SCH ×2 (17:15→22:37)
[2022-01-19 20:47] LABS: PH,URINE 7.5 (5.0-8.0); URINE APPEARANCE CLEAR; URINE BILIRUBIN NEGATIVE (NEGATIVE); URINE COLOR YELLOW; URINE GLUCOSE (UA) NEGATIVE (NEGATIVE); URINE KETONE NEGATIVE (NEGATIVE); URINE LEUK ESTERASE NEGATIVE (NEGATIVE); URINE NITRITE NEGATIVE (NEGATIVE); URINE PROTEIN NEGATIVE (NEGATIVE)
[2022-01-19] MEDS ORDERED: MELATONIN 5 MG TABLETS PO SCH (22:00)
[2022-01-19] MEDS: THIAMINE HCL 100 MG TABLET (FP) PO SCH (22:38)
[2022-01-20] MEDS: hydrOXYzine PAMOATE 25 MG CAPSULE (FP) PO SCH ×5 (05:38→22:22)
[2022-01-20] MEDS ORDERED: methaDONE HCL 10 MG TABLET (FOR DETOX USE ONLY) ONE (10:05)
[2022-01-20 10:24] LABS: HEMATOCRIT 34.1 % (35.4-49); HEMOGLOBIN 11.4 GM/dL (11.7-16.9); MCH 26.9 pg (25.7-33.7); MCHC 33.4 g/dl (32.0-35.9); MEAN CELL VOLUME 80.6 fl (80-96); MEAN PLT VOLUME 8.5 fl (7.5-11.1); PLATELET COUNT 183 10^3/uL (134-434); RBC 4.24 M/mm3 (4.00-5.60); RDW 14.8 % (11.9-15.9); WHITE BLOOD COUNT 4.5 K/mm3 (4.0-10.0)
[2022-01-20] MEDS: METHOCARBAMOL 500 MG TABLET PO PRN ×2 (10:29→22:22)
[2022-01-20] MEDS: PRENATAL VITAMINS W/ FOLIC ACID TABLET (FP) PO SCH (10:29)
[2022-01-20] MEDS: NICOTINE 21 MG/24 HOURS TOPICAL PATCH TD SCH (10:29)
[2022-01-20 10:41] LABS: BLOOD UREA NITROGEN 12.6 mg/dL (7-18); CALCIUM 8.5 mg/dL (8.5-10.1)
[2022-01-20 10:44] LABS: ALBUMIN 2.8 g/dl (3.4-5.0); CREATININE 0.7 mg/dL (0.55-1.3)
[2022-01-20 10:45] LABS: BILIRUBIN,TOTAL 0.6 mg/dL (0.2-1)
[2022-01-20 10:46] LABS: TOT PROT 6.4 g/dl (6.4-8.2)
[2022-01-20] MEDS: THIAMINE HCL 100 MG TABLET (FP) PO SCH (22:22)
[2022-01-20] MEDS: QUEtiapine FUMARATE 50 MG TABLET PO PRN (22:24)
[2022-01-21] MEDS: hydrOXYzine PAMOATE 25 MG CAPSULE (FP) PO SCH ×5 (07:13→22:05)
[2022-01-21] MEDS ORDERED: methaDONE HCL 10 MG TABLET (FOR DETOX USE ONLY) PO ONE (10:00)
[2022-01-21] MEDS: PRENATAL VITAMINS W/ FOLIC ACID TABLET (FP) PO SCH (10:08)
[2022-01-21] MEDS: NICOTINE 21 MG/24 HOURS TOPICAL PATCH TD SCH (10:09)
[2022-01-21] MEDS: THIAMINE HCL 100 MG TABLET (FP) PO SCH (22:05)
[2022-01-21] MEDS: QUEtiapine FUMARATE 50 MG TABLET PO PRN (22:05)
[2022-01-22] MEDS: hydrOXYzine PAMOATE 25 MG CAPSULE (FP) PO SCH ×5 (06:14→22:05)
[2022-01-22] MEDS ORDERED: methaDONE HCL 10 MG TABLET (FOR DETOX USE ONLY) ONE (08:46)
[2022-01-22] MEDS: PRENATAL VITAMINS W/ FOLIC ACID TABLET (FP) PO SCH (10:07)
[2022-01-22] MEDS: METHOCARBAMOL 500 MG TABLET PO PRN ×2 (10:08→22:07)
[2022-01-22] MEDS: NICOTINE 21 MG/24 HOURS TOPICAL PATCH TD SCH (10:09)
[2022-01-22] MEDS: THIAMINE HCL 100 MG TABLET (FP) PO SCH (22:05)
[2022-01-22] MEDS: QUEtiapine FUMARATE 50 MG TABLET PO PRN (22:07)
[2022-01-23] MEDS: hydrOXYzine PAMOATE 25 MG CAPSULE (FP) PO SCH ×5 (06:18→22:10)
[2022-01-23] MEDS ORDERED: methaDONE HCL 10 MG TABLET (FOR DETOX USE ONLY) PO ONE (10:00)
[2022-01-23] MEDS: PRENATAL VITAMINS W/ FOLIC ACID TABLET (FP) PO SCH (10:07)
[2022-01-23] MEDS: METHOCARBAMOL 500 MG TABLET PO PRN ×2 (10:08→17:58)
[2022-01-23] MEDS: NICOTINE 21 MG/24 HOURS TOPICAL PATCH TD SCH (10:09)
[2022-01-23] MEDS: THIAMINE HCL 100 MG TABLET (FP) PO SCH (22:10)
[2022-01-23] MEDS: QUEtiapine FUMARATE 50 MG TABLET PO PRN (22:11)
[2022-01-24] MEDS: hydrOXYzine PAMOATE 25 MG CAPSULE (FP) PO SCH (05:21)
[2022-01-24 09:01] VITALS: BP 90/58; PULSE 66; TEMP 97.7
== END 2022-01-24 09:36 | disposition home or self-care (01) | DRG 773 ==
LOC: YASAS 11:57 → Y3N 14:37
PROVIDERS: ADMIT Allergy & Immunology; ATTEND Surgery
PROC: HZ2ZZZZ Detoxification Services for Substance Abuse Treatment (ICD-10-PCS; principal; 2022-01-19)
DX: F11.23 Opioid dependence with withdrawal (principal); F14.20 Cocaine dependence, uncomplicated; F17.210 Nicotine dependence, cigarettes, uncomplicated; F19.282 Other psychoactive substance dependence with psychoactive substance-induced sleep disorder; F19.24 Other psychoactive substance dependence with psychoactive substance-induced mood disorder; F43.10 Post-traumatic stress disorder, unspecified; E88.09 Other disorders of plasma-protein metabolism, not elsewhere classified; G47.00 Insomnia, unspecified; D64.9 Anemia, unspecified; R74.01 Elevation of levels of liver transaminase levels
CPT/HCPCS: 36415; 80053; 81003; 85027; 86780; 87811; C9803-CS; J0735; U0003; U0005

== ENCOUNTER 2023-02-16 03:26 | Inpatient (IN) | payer OTHER ==
[2023-02-16 03:56] VITALS: BMI 28.3
[2023-02-16] MEDS ORDERED: IBUPROFEN 400 MG TABLET (FP) PO PRN (05:50)
[2023-02-16] MEDS ORDERED: ACETAMINOPHEN 325 MG TABLET (FP) PO PRN (05:50)
[2023-02-16] MEDS ORDERED: DICYCLOMINE HCL 10 MG CAPSULE PO PRN (05:50)
[2023-02-16] MEDS ORDERED: MAG HYDROX/AL HYDROX/SIMETH 30 ML UNIT-DOSE CUP PO PRN (05:50)
[2023-02-16] MEDS ORDERED: MAGNESIUM HYDROX 2400MG/30ML ORAL SUSPENSION 30 ML CUP PO PRN (05:50)
[2023-02-16] MEDS ORDERED: POLYETHYLENE GLYCOL (HEALTHYLAX) 3350 17 GM PACKET PO PRN (05:50)
[2023-02-16] MEDS ORDERED: LOPERAMIDE HCL 2 MG CAPSULE PO PRN (05:50)
[2023-02-16] MEDS ORDERED: BENZONATATE 200 MG CAPSULE PO PRN (05:50)
[2023-02-16] MEDS ORDERED: NALOXONE HCL 0.4 MG/ML VIAL IM PRN (05:50)
[2023-02-16] MEDS ORDERED: METHOCARBAMOL 500 MG TABLET PO PRN (05:50)
[2023-02-16] MEDS ORDERED: ONDANSETRON *ODT* 4 MG TABLET SL PRN (05:50)
[2023-02-16] MEDS ORDERED: NALOXONE HCL (KLOXXADO) 8 MG SPRAY NS PRN (05:50)
[2023-02-16] MEDS ORDERED: BISMUTH SUBSALICYLATE 524 MG/30 ML PO PRN (05:50)
[2023-02-16] MEDS ORDERED: IBUPROFEN 600 MG TABLET (FP) PO PRN (05:50)
[2023-02-16] MEDS ORDERED: guaiFENesin 600 MG TABLET.ER (FP) PO PRN (05:50)
[2023-02-16] MEDS ORDERED: BENZOCAINE/MENTHOL (CHLORASEPTIC ) LOZENGE MM PRN (05:50)
[2023-02-16] MEDS ORDERED: NICOTINE POLACRILEX 2 MG GUM BUC PRN (05:50)
[2023-02-16] MEDS ORDERED: PRENATAL VITAMINS W/ FOLIC ACID TABLET (FP) PO SCH (10:00)
[2023-02-16] MEDS ORDERED: NICOTINE 14 MG/24 HOURS TOPICAL PATCH TD SCH (10:00)
[2023-02-16] MEDS: diazePAM 5 MG TABLET PO PRN ×3 (13:07→21:36)
[2023-02-16 20:44] VITALS: TEMP 97.5
[2023-02-16] MEDS ORDERED: MELATONIN 5 MG TABLETS PO SCH (22:00)
[2023-02-16] MEDS ORDERED: THIAMINE HCL 100 MG TABLET (FP) PO SCH (22:00)
[2023-02-17] MEDS: diazePAM 5 MG TABLET PO PRN (04:08)
[2023-02-17 06:12] VITALS: BP 141/93; PULSE 76; RESP 18
== END 2023-02-17 08:46 | disposition left against medical advice (07) | DRG 770 ==
LOC: YASAS 03:26 → Y3N 05:24
PROVIDERS: ADMIT Allergy & Immunology; ATTEND Surgery
PROC: HZ2ZZZZ Detoxification Services for Substance Abuse Treatment (ICD-10-PCS; principal; 2023-02-16)
DX: F11.20 Opioid dependence, uncomplicated (principal); F10.20 Alcohol dependence, uncomplicated; F14.20 Cocaine dependence, uncomplicated; F15.20 Other stimulant dependence, uncomplicated; F12.20 Cannabis dependence, uncomplicated; F17.210 Nicotine dependence, cigarettes, uncomplicated; F41.8 Other specified anxiety disorders; F43.10 Post-traumatic stress disorder, unspecified
CPT/HCPCS: 36415; 86780; 87635